=== PATIENT | male | born 1945 | race Caucasian/White ===

== ENCOUNTER 2017-02-20 19:46 | Inpatient (IN) ==
--- NOTE | 2017-02-20 20:22 | Emergency Department Note ---
General Adult HPI - General Chief complaint: Altered Mental Status Stated complaint: fall Time Seen by Provider: 02/20/17 19:59 Source: EMS Mode of arrival: wheelchair - History of Present Illness HPI Narrative: Patient lives at home by himself , age 72, states that he fell approximately 4 hours ago but was unable to get up to make a phone call. Daughters called EMs welfare check and they found him on the floor. he states that he is too heavy to get up on his own. He denies any chest pain or shortness of breath. He states he just stumbled to the floor. No loss consciousness there is no head injury. Currently patient has been refusing to go to a shelter as the family feels he is been unable to care for himself. Not be taking his medications correctly. He does have a history of bipolar disorder but I do not think he is on lithium at this time. Is diabetic but his blood sugars 94 when soa integration developer first arrived 88 at this time. he appears dehydrated. He is now 94 systolically fluids are currently being bolused. he is aware that he is a [facility] seems to be able to give us a good history on what exactly happened. He blames on his weight for not being able to get up., States that his lifeline device not working. - Related Data Home Medications Medication Instructions Recorded Confirmed ALPRAZolam [Xanax] 0.25 mg PO BIDP PRN 04/04/16 02/21/17 Bisoprolol [Zebeta] 5 mg PO DAILY 04/04/16 02/21/17 Carisoprodol [Soma] 350 mg PO BID 04/04/16 02/21/17 Citalopram Hydrobromide 20 mg PO DAILY 04/04/16 02/21/17 [Citalopram HBr] Furosemide [Lasix] 20 mg PO DAILY 04/04/16 02/21/17 Gabapentin [Neurontin] 600 mg PO TID 04/04/16 02/21/17 HYDROcodone/APAP 10/325MG [[place] 1 - 2 tab PO Q4H PRN 04/04/16 02/21/17 10/325Mg] Lisinopril [Zestril] 20 mg PO DAILY 04/04/16 02/21/17 [employer] Carbon[place] 300 mg PO TID 04/04/16 02/21/17 Simvastatin [Zocor] 20 mg PO HS 04/04/16 02/21/17 Tamsulosin [Flomax] 0.4 mg PO HS 04/04/16 02/21/17 metFORMIN HCL [Glucophage] 1,000 mg PO BID 04/04/16 02/21/17 lamoTRIgine [Lamotrigine] 200 mg PO HS 04/05/16 02/21/17 Allergies Allergy/AdvReac Type Severity Reaction Status Date / Time Iodinated Contrast Media - Allergy Severe Unresponsiv Verified 04/04/16 15:46 Oral and e [Iodinated Contrast Media - IV Dye] Methadone [METHADONE] Allergy Intermediate UNKNOWN Verified 04/04/16 11:59 quetiapine [From SEROQUEL] AdvReac Intermediate DELUSIONAL, Verified 04/04/16 13 :59 SICK risperidone [From RISPERDAL] AdvReac Intermediate DELUSIONAL, Verified 04/04/16 13:59 SICK Zolpidem [From AMBIEN] AdvReac Intermediate DELUSIONS Verified 04/04/16 13:59 Review of Systems All systems ED: reviewed and negative except as stated. Constitutional: Denies: fever Eyes: Denies: eye pain ENT ED: Denies: ear pain Cardiovascular: Denies: chest pain Respiratory: Denies: cough Gastrointestinal: Denies: abdominal pain Genitourinary: Denies: urgency Musculoskeletal: Denies: back pain Integumentary: Denies: rash Neurological: Reports: weakness. Denies: headache, numbness, paresthesias, confusion, abnormal gait, vertigo Psychiatric: Denies: anxiety Past Medical History - Past Medical History Medical history: Reports: diabetes, hyperlipidemia, hypertension, thyroid disease, other (cellulitis. BPH. Recurrent accidental falls. Sleep apnea. Morbid obesity.) Psychiatric history: Reports: bipolar, depression, PTSD - Social History smoking status: Current every day smoker Alcohol use: Reports: None Physical Exam - General Limitations: no limitations General appearance: lethargic - Head Head exam: atraumatic, normocephalic - Eye Eye exam: Present: normal appearance, PERRL - ENT ENT exam: normal exam, normal oropharynx, mucous membranes dry - Neck Neck exam: Present: normal inspection, full ROM - Chest Chest inspection: Present: normal inspection, symmetric chest wall rise - Respiratory Respiratory exam: Present: normal lung sounds bilaterally. Absent: respiratory distress, wheezes - Cardiovascular Cardiovascular exam: Present: regular rate, normal rhythm. Absent: bradycardia , tachycardia - Abdominal Exam Abdominal exam: Present: soft, distention. Absent: tenderness, guarding, rebound, rigidity - Extremities Exam Extremities exam: Present: normal inspection, full ROM. Absent: tenderness - Back Exam Back exam: Present: normal inspection, full ROM. Absent: tenderness - Expanded Neurological Exam Patient oriented to: Present: person, place. Absent: time Speech: Present: fluid speech Cranial nerves: EOM function (II, III, IV, ): Normal, facial sensation (V): Normal, facial palsy (VII): Normal, gag reflex (IX): Normal, spinal accessory function (XI): Normal, tongue deviation (XII): Normal Cerebellar function: normal gait Motor strength - LUE: 5/5 Motor strength - RUE: 5/5 Motor strength - LLE: 5/5 Motor strength - RLE: 5/5 Upper motor neuron exam: Babinski sign: Absent bilaterally Sensory exam upper extremity: Normal: light touch, pin prick Sensory exam lower extremity: Normal: light touch, pin prick - Psychiatric Psychiatric exam: Present: anxious - Skin Skin exam: Present: warm, dry Course Vital Signs Temperature 96.9 F L 02/20/17 19:48 Pulse Rate 55 L 02/20/17 19:48 Respiratory Rate 19 02/20/17 19:48 Blood Pressure 103/51 02/20/17 19:48 Pulse Oximetry (%) 95 02/20/17 19:48 Temperature 96.9 F L 02/20/17 19:48 Pulse Rate 55 L 02/21/17 07:48 Respiratory Rate 20 02/21/17 07:48 Blood Pressure 102/60 02/21/17 07:48 Pulse Oximetry (%) 98 02/21/17 07:48 Medical Decision Making - [facility] Narrative Medical decision making narrative: pt intially refused head ct then agreed. CT is negative bun is 20 the creatinine is 2.2 , wbc is 13.6 Patient refusing to be hospitalized states that he gets panic attacks when he is hospitalized. Attempted to contact the family were involved. Finally did contact the daughter. She states that the family refuses to have any interaction with him.. Due to the fact that the patient had fallen unable to get up we have observed the patient throughout the entire night patient is resting comfortably and still refusing to be admitted. Social service has been contacted patient is refusing assisted living options.. Radiologist would like to have a facial MRI this morning patient is refusing the facial MRI. Social service consulted. Patient transferred to the care of Dr. Orellana at 0900 hrs. - Lab Data Result diagrams: 02/20/17 20:19 02/20/17 20:19 Lab Results 02/20/17 02/20/17 02/20/17 Range/Units 20:19 20:19 20:19 WBC 13.6 H (4.5-11.0) K/mcL RBC 3.68 L (4.50-5.90) M/mcL Hgb 12.1 L (13.5-16.5) g/dL Hct 35.4 L (41.0-55.0) % POC Hct 34.0 L (41.0-55.0) % MCV 96.3 (80.0-100.0) fL MCH 32.9 (26.0-34.0) pg MCHC 34.2 (31.0-36.0) g/dL RDW 12.9 (11.5-14.5) % Plt Count 211 (140-440) K/mcL MPV 8.7 (7.4-10.4) fL Total Counted 100 Seg Neutrophils % 75 (38-78) % Band Neutrophils % Not Reportable Lymphocytes % 13 L (15-49) % Monocytes % (Manual) 7 (1-12) % Eosinophils % (Manual) 4 (0-7) % Basophils % (Manual) 1 (0-2) % Platelet Estimate Normal (NORMAL) RBC Morphology Normal (NORMAL) POC Sodium 141 (133-145) mmol/L Sodium 140 (133-145) mmol/L POC Potassium 3.5 (3.3-5.1) mmol/L Potassium 3.6 (3.3-5.1) mmol/L POC Chloride 109 H (96-108) mmol/L Chloride 105 (96-108) mmol/L Carbon Dioxide 18 L (22-30) mmol/L POC Total CO2 20 L (22-30) mmol/L Anion Gap 17.0 H (8-16) POC BUN 22 (8-23) mg/dl BUN 23 (8-23) mg/dl Creatinine 2.2 H (0.7-1.2) mg/dl POC Creatinine 2.3 H (0.7-1.2) mg/dl GFR Calculation 28 Glucose 83 (70-105) mg/dL POC Glucose 82 (70-105) mg/dL Calcium 9.0 (8.6-10.4) mg/dl POC WB Ioniz Calcium 1.18 (1.16-1.32) mmol/L Total Bilirubin 0.5 (0.0-1.0) mg/dL AST 22 (0-37) U/l ALT 16 (0-40) U/l Alkaline Phosphatase 48 (39-117) U/L Total Creatine Kinase 205 H (24-195) IU/L CK-MB (CK-2) 7.4 H (0-4.9) ng/ml Myoglobin 268 H (28-72) ng/ml Troponin T 0.02 (0-0.03) ng/ml Total Protein 5.9 (5.9-8.4) gm/dL Albumin 3.8 (3.2-5.2) gm/dL Globulin 2.1 L (2.2-3.7) gm/dL Albumin/Globulin Ratio 1.8 (1.0-2.3) Disposition Condition: Undetermined Referrals: Juliet Cortés MD [Primary Care Provider] - Forms: Left Against Medical Advice
[2017-02-20 21:06] LABS: Mean Cell Volume 96.3 fL (80.0-100.0); Mean Corpuscular HGB Conc 34.2 g/dL (31.0-36.0); Mean Corpuscular Hemoglobin 32.9 pg (26.0-34.0); Platelet Count 211 K/mcL (140-440); RBC 3.68 M/mcL (4.50-5.90); Red Cell Distribution Width 12.9 % (11.5-14.5)
[2017-02-20 21:42] LABS: ALT/SGPT 16 U/l (0-40); Albumin 3.8 gm/dL (3.2-5.2); Albumin/Globulin Ratio 1.8 (1.0-2.3); Alkaline Phosphatase 48 U/L (39-117); Blood Urea Nitrogen 23 mg/dl (8-23); Creatine Kinase 205 IU/L (24-195); Creatine Kinase MB 7.4 ng/ml (0-4.9); Myoglobin 268 ng/ml (28-72)
[2017-02-20 22:26] LABS: Basophils % (Manual) 1 % (0-2); Eosinophils % (Manual) 4 % (0-7); Lymphocytes % 13 % (15-49); Monocytes % (Manual) 7 % (1-12); Platelet Estimate NORMAL (NORMAL); RBC Morphology NORMAL (NORMAL); Segmented Neutrophils % 75 % (38-78)
--- NOTE | 2017-02-21 06:52 | XRay Report ---
CLINICAL INFORMATION: Weakness COMPARISON: 04/04/2016. FINDINGS: Mild cardiomegaly is unchanged. Mediastinum and pulmonary vessels are normal. The lungs are clear. No effusions. Bones soft tissues normal. IMPRESSION: Mild stable cardiomegaly. Interpreted and Authenticated by: Regulo Dupree 02/21/17
--- NOTE | 2017-02-21 07:02 | Cat Scan Report ---
CLINICAL INFORMATION: Trauma - fall COMPARISON: 04/25/[address] TECHNIQUE: 2.5 mm helical slices were obtained in the skull base to vertex. Following reconstruction, axial reformatted images were reviewed at bone and parenchymal windows. FINDINGS: The ventricles, sulci, fissures, and cisterns are minimally enlarged compatible with mild atrophy this is unchanged - no subdural hemorrhage or other extra-axial fluid collection or mass appreciated. Minimal chronic ischemic change noted the cerebral white matter. Is no intracerebral hemorrhage, mass effect, edema or other acute finding. Bone windows show no fracture. There is moderate mucosal thickening in right maxillary sinus with focal erosion in the posterior wall of the right maxillary sinus. Mild mucosal thickening in the ethmoid air cells may be physiologic. Sphenoid left maxillary and frontal air cells are clear IMPRESSION: Mild atrophy and chronic ischemic changes in the cerebral white matter - stable since exam less than one year ago. No intracerebral hemorrhage or acute posttraumatic change. Moderate mucosal thickening right maxillary sinus with focal erosion posterior wall the right maxillary sinus. This is a new finding when comparing head CT from less than one year prior 04/04/2016. The focal erosion is somewhat worrisome and increases the probability of squamous cell carcinoma. Suggest: Sinus CT Interpreted and Authenticated by: Regulo Dupree 02/21/17
--- NOTE | 2017-02-21 10:01 | History and Physical Report ---
DATE OF ADMISSION: 02/20/2017 REASON FOR ADMISSION: Mental status change, weakness, and fall, found down. HISTORY OF CHIEF COMPLAINT: The patient is a 72-year-old with a history of bipolar disorder, anum, diabetes, mellitus type 2 and neuropathy, who was found by his family on the floor. He was subsequently brought into the ER. The patient has a significant mental status change with initial GCS score of 11; however, over the ensuing 6 hours in the ER, the patient had extensive workup, which was essentially unremarkable except for renal failure with a creatinine of 2.3. The patient initially refused hospitalization. However, due to family's concerns and case management request patient finally agreed to hospitalization and subsequently Hospitalist Service was consulted. At the time of examination, the patient is lethargic, fatigued, intermittently confused but was able to provide answers to some of the questions. He lives independently. He has had recent medication changes as per patient by his primary care physician and has been progressively getting weaker. He has sustained multiple falls in the recent months. He otherwise denies fever, diarrhea, glandular swelling, joint swelling, pain or rash. He further denies lower extremity swelling, bloody stools, dysuria, chest pain, shortness of breath, cough, or sick contacts. He also denies recent [id number] medications or substance abuse. He has been on lithium in the past. A lithium level is pending. As per records, the patient did not lose consciousness. He is, however, too weak to be able to press his Life Alert. PAST MEDICAL HISTORY: 1. History of hypertension. 2. Anxiety. 3. Hyperlipidemia. 4. Neuropathy. 5. Diabetes mellitus type 2. 6. Degenerative joint disease. 7. Bipolar disorder. 8. BPH. CURRENT MEDICATIONS: 1. Alprazolam 0.25 mg b.i.d. p.r.n. 2. Bisoprolol 5 mg. 3. Risperdal 50 mg. 4. Citalopram 20 mg. 5. Furosemide 20 mg. 6. Gabapentin 600 mg t.i.d. 7. Hydrocodone/acetaminophen 10/325 mg 1 to 2 q.4h. 8. Lisinopril 20 mg. 9. [place] 300 mg t.i.d. 10. Simvastatin 20 mg at bedtime. 11. Tamsulosin 0.4 mg at bedtime. 12. Metformin 1000 mg b.i.d. 13. Lamotrigine 20 mg at bedtime. ALLERGIES: Known to: 1. ZOLPIDEM. 2. RISPERIDONE. 3. QUETIAPINE. 4. METHADONE. 5. CONTRAST DYES. SOCIAL HISTORY: The patient lives alone; however, he has local family in town including 19 grandkids. He has two daughters. CODE STATUS: FULL CODE. He sees primary care physician, Juliet Cortés MD. FAMILY HISTORY: Noncontributory. PHYSICAL EXAMINATION: GENERAL: The patient intermittently confused, weak, lethargic, fatigued. BMI 47. Height 5 feet 7 inches. VITAL SIGNS: Blood pressure 140/50, respiration rate 11, temperature 96.9, pulse 55, sats 96% on room air. HEENT: Pupils symmetric. Oral cavity is dry. No nystagmus. No ear or nose discharge. Head is normocephalic and atraumatic. NECK: No lymphadenopathy. HEART: S1, S2 regular rhythm, bradycardia. ESM grade 1. Diminished breath sounds at bases, but symmetrical breath sounds bilateral posterior chest. ABDOMEN: Soft, pendulous, extensive pannus, upper extremity skin excoriation along with bruising. LOWER EXTREMITIES: Minimal edema, but no cyanosis or clubbing. No joint swelling. SKIN: No suspicious lesions. PSYCHIATRIC: Anxious, hard of hearing, lethargic, but no agitation. NEURO: Moving all four extremities. Higher functions could not be checked. LABS AND IMAGING: White count 13.6, hemoglobin 12.1, platelets 211. Sodium 141, potassium 4.1, creatinine 2.3, and BUN 23. CK 205. LFTs unremarkable. [place] level pending. ASSESSMENT AND PLAN: A 72-year-old admitted with mental status change, falls, leukocytosis, acute renal failure. 1. Acute mental status change, unclear etiology. Rule out lithium toxicity, lithium levels pending. Rule out infectious etiology, perform lumbar puncture, start empiric antibiotic coverage. 2. Acute renal failure. Baseline creatinine 1.4. Start patient on crystalloids and monitor renal function and consult Nephrology if worsening leukocytosis of unclear etiology. [place] cultures, initiate antibiotics. Procalcitonin, strep pneumo antigen. 3. Other prior medical issues will be managed on home medications, including: a. History of hyperlipidemia. Continue statin. b. Benign prostatic hypertrophy. Continue tamsulosin. c. History of bipolar disorder. Hold lithium. d. Diabetes mellitus type 2. Continue prandial insulin/Sitagliptin. e. Anxiety disorder. Continue citalopram/alprazolam. f. Hypertension. Continue bisoprolol/lisinopril. PLAN FOR TODAY: 1. Admit as inpatient in light of renal failure, leukocytosis, mental status change. 2. Lumbar puncture. 3. [place] cultures, lithium levels. 4. Monitor renal function. Patient will require minimum of two-midnight stay in light of above diagnosis. AA:ellen Job ID: [id number] Doc ID: [id number] Abdi Olivares MD
[2017-02-21] MEDS ORDERED: DEXTROSE 50% 50 ML VIAL IV PRN (10:58)
[2017-02-21] MEDS ORDERED: VANCOMYCIN PER PHARMACY IV SCH (10:58)
[2017-02-21] MEDS ORDERED: 0.9 % SODIUM CHLORIDE 1,000 ML IV SCH ×2 (10:58→14:20)
[2017-02-21] MEDS ORDERED: ONDANSETRON 4 MG/2 ML VIAL IV PRN (10:58)
[2017-02-21] MEDS ORDERED: MAGNESIUM SULFATE 2 GM/50 ML BAG IV PRN (10:58)
[2017-02-21 11:20] LABS: C-Reactive Protein < 0.3 mg/dl (0.0-0.8)
[2017-02-21] MEDS: INSULIN LISPRO 1 UNIT/0.01 ML UNIT SQ SCH ×3 (11:40→22:44)
[2017-02-21] MEDS: 0.9 % SODIUM CHLORIDE 10 ML SYRINGE IV SCH ×2 (12:00→21:19)
--- NOTE | 2017-02-21 12:07 | Event Note ---
Pt Creat is 2.45, gfr 28, MRI with contrast not possible. Therefore cacelled Pt is confused aoox2, but does obey commands, no neck rigidity, no neck stiffness. Emmet is 1.7. Will await UA before proceeding with LP.
[2017-02-21] MEDS: cefTRIAXone 2 GM in DEXTROSE 5% IN WATER 50 ML IV SCH (12:24)
[2017-02-21] MEDS: ACETAMINOPHEN 325 MG TABLET PO PRN (12:40)
[2017-02-21 13:26] LABS: Appearance,Urine HAZY; Bacteria,Urine 0 /hpf (0); Bilirubin,Urine NEG (NEG); Color,Urine YELLOW; Glucose,Urine (UA) 50 mg/dL (NEG); Leukocyte Esterase,Urine NEG /uL (NEG); Mucus,Urine FEW /hpf (0); Nitrate,Urine NEG (NEG); Protein,Urine 100 mg/dL (NEG); Specific Gravity,Urine 1.015 (1.000-1.035); Urine Blood NEG mg/dL (<0.03); Urine Granular Cast 1 /lpf (0); Urine Hyaline Cast 11 /lpf (0-2); Urine RBC < 1 /hpf (0-1); Urine Squamous Epithelial Cell 0 /hpf (0-4); Urine WBC 4 /hpf (0-4); Urine WBC Cast 12 /lpf (0); Urobilinogen,Urine NEG (NEG)
[2017-02-21 13:30] LABS: Amphetamine Screen,Urine NONE DETECTED (NONDETECTED); Benzodiazepines Screen,Urine SUSPECT POSITIVE (NONDETECTED); Cocaine Screen,Urine NONE DETECTED (NONDETECTED); Opiate Screen,Urine NONE DETECTED (NONDETECTED); Oxycodone, Urine Screen NONE DETECTED (NONDETECTED)
[2017-02-21] MEDS: VANCOMYCIN 1,500 MG in 0.9 % SODIUM CHLORIDE 500 ML IV SCH (13:52)
[2017-02-21 15:15] LABS: Basophils # (Auto) 0 K/mcL (0.0-0.3); Basophils % (Auto) 0.3 % (0.0-2.0); Eosinophils # (Auto) 0.7 K/mcL (0.0-0.7); Eosinophils % (Auto) 5.3 % (0.0-7.0); Granulocytes % (Auto) 69.4 % (38.0-78.0); Mean Corpuscular HGB Conc 33.8 g/dL (31.0-36.0); Mean Corpuscular Hemoglobin 32.4 pg (26.0-34.0); Monocytes # (Auto) 1.1 K/mcL (0.1-0.9); Platelet Count 218 K/mcL (140-440); RBC 3.63 M/mcL (4.50-5.90); Red Cell Distribution Width 12.9 % (11.5-14.5)
[2017-02-21 15:37] LABS: ALT/SGPT 15 U/l (0-40); Albumin 3.7 gm/dL (3.2-5.2); Albumin/Globulin Ratio 1.9 (1.0-2.3); Alkaline Phosphatase 48 U/L (39-117); Blood Urea Nitrogen 31 mg/dl (8-23)
--- NOTE | 2017-02-21 17:59 | Nephrology Consult Note ---
History of Present Illness - Reason for Consult Patient information: Note initiated : 02/21/17 at 5:49 pm Service Date, if different from initiated Date: [] Patient: Paco Ramos 72 y/o M admitted on 02/21/17 for fall. Chief Complaint: [] Consult date: 02/21/17 acute renal failure Requesting physician: Elias Kerr - Chief Complaint 72 years old male with lithium toxicity - History of Present Illness 72 years male, who was reportedly brought to to hospital after a family member grew concerned about his mental status during a routine wellness check. Patient stated that he lives alone and that he had multiple episodes or diarrhea the day before he was admitted to hospital. He denied fever, chills, chest pain, dyspnea, nausea, vomiting, tremors or seizures. At present he is alert and oriented to self and place, without any tremors, myoclonus or seizures. Nursing staff report he was initially somnolent but has been more awake and at times agitated. Patient asked he can be prescribed Flonase nasal spray since he routinely uses it at home twice a day. He denied suicidal ideation or attempt and could not recall if he takes regular [place] or sustained release preparation. Notably, his out patient medications include Lasix and Lisinopril, and he stated that he has been taking all his pills "exactly as prescribed" Nursing staff reported that patient received about 2 liters of isotonic saline iv in ER, followed by about 650 ml as diluent for iv ceftriaxone and vancomycin (1.5 grams given iv), and that since arrival to floor he has only received about 850 ml of isotonic saline. Urine output was reported to be about 1 liter since 7 am today. Reportedly, patient refused [place], CT of sinuses and lumbar puncture Review of Systems ROS unobtainable: due to mental status Past History Past medical history: Bipolar disorder on [place] Past surgical history: Patient unable to recall Past family history: Patient unable to recall Past social history: Patient denied alcohol abuse or drug abuse, reported occasional tobacco use Medications and Allergies Home Medications Medication Instructions Recorded Confirmed Type ALPRAZolam [Xanax] 0.25 mg PO BIDP PRN 04/04/16 02/21/17 History Bisoprolol [Zebeta] 5 mg PO DAILY 04/04/16 02/21/17 History Carisoprodol [Soma] 350 mg PO BID 04/04/16 02/21/17 History Citalopram Hydrobromide 20 mg PO DAILY 04/04/16 02/21/17 History [Citalopram HBr] Furosemide [Lasix] 20 mg PO DAILY 04/04/16 02/21/17 History Gabapentin [Neurontin] 600 mg PO TID 04/04/16 02/21/17 History Lisinopril [Zestril] 20 mg PO DAILY 04/04/16 02/21/17 History [place] Carbonate 300 mg PO TID 04/04/16 02/21/17 History Simvastatin [Zocor] 20 mg PO HS 04/04/16 02/21/17 History Tamsulosin [Flomax] 0.4 mg PO HS 04/04/16 02/21/17 History metFORMIN HCL [Glucophage] 1,000 mg PO BID 04/04/16 02/21/17 History lamoTRIgine [Lamotrigine] 200 mg PO HS 04/05/16 02/21/17 History Finasteride [Proscar] 5 mg PO DAILY 02/21/17 02/21/17 History HYDROcodone/ACETAMINOPHEN 1 - 2 tab PO Q4HP PRN 02/21/17 02/21/17 History [Hydrocodon-Acetaminophn 10-325] Allergies Allergy/AdvReac Type Severity Reaction Status Date / Time Iodinated Contrast Media - Allergy Severe Unresponsiv Verified 04/04/16 15:46 Oral and e [Iodinated Contrast Media - IV Dye] Methadone [METHADONE] Allergy Intermediate UNKNOWN Verified 04/04/16 11:59 quetiapine [From SEROQUEL] AdvReac Intermediate DELUSIONAL, Verified 04/04/16 13 :59 SICK risperidone [From RISPERDAL] AdvReac Intermediate DELUSIONAL, Verified 04/04/16 13:59 SICK Zolpidem [From AMBIEN] AdvReac Intermediate DELUSIONS Verified 04/04/16 13:59 Exam - Vital Signs Vital signs: Temp Pulse Resp BP Pulse Ox 98.2 F 49 L 16 150/66 98 02/21/17 15:45 02/21/17 11:16 02/21/17 15:45 02/21/17 15:45 02/21/17 15:45 - General Appearance General appearance: appears started age, obese Results - Lab Results 02/21/17 14:40 02/21/17 14:40 Most recent lab results Calcium 9.0 mg/dl (8.6-10.4) 02/21/17 14:40 Assessment and Plan (1) LEATHA (acute kidney injury) Baseline renal function unknown, SCr currently stable, noted to have mildly elevated CK, could have underlying mild CKD due to chronic [place] use or other unknown etiology, clinically not grossly hypo or hypervolemic, would pursue iv hydration liberally (nursing staff instructed), follow I/O, BMP, follow serum vancomycin trough level, renal sonogram if not done already (unlikely to have obstructive uropathy) Mild decrease in serum bicarbonate and elevation in AG suggestive of AG metabolic acidosis which is not characteristic of [place] toxicity. Check serum salicylate, acetaminophen, lactate, beta-OH, urine and serum osmolality, venous blood gas No clinical evidence of sepsis, leukocytosis possible due to [place] toxicity, reasonable to continue empiric antibiotics with dose adjustments Status: Acute (2) [place] poisoning of undetermined intent Most likely, as suggested by history and symptoms, this is acute on chronic toxicity precipitated by diarrhea with on going use of Lasix and Lisinopril as opposed to acute intentional overdose. At present neurological status and [place] level and lack of adequate hydration there is no pressing indication for hemodialysis. Rise in [place] level possible due to delayed absorption or use of delayed release preparation. Symptoms, urine SG, serum sodium, serum calcium, not suggestive of [place]-induced Diabetes Insipidus. Nursing staff instructed to maintain iv isotonic saline infusion rate at 200- 250 ml per hr, follow I/O, periodic evaluation of volume status, would check TSH if not sent already and follow blood glucose to monitor for hypoglycemia, new lithium level result is pending, check [place] with am labs Status: Chronic
[2017-02-21] MEDS ORDERED: LORazepam 2 MG/ML VIAL ONE (18:34)
[2017-02-21] MEDS: LORazepam 2 MG/ML VIAL IV PRN ×2 (18:36→22:00)
[2017-02-21 19:29] LABS: ABG Methemoglobin 0.1 % (0.4-1.5); VBG Base Excess -3.8 (-2.0-2.0); VBG HCO3 20.8 mmol/L (24.0-28.0); VBG Oxygen Saturation 95.8 % (40.0-70.0); VBG PH 7.38 U (7.32-7.42); VBG PO2 124 mmHg (25-40); VBG Total CO2 21.9 mmol/L (25.0-29.0)
[2017-02-21 20:16] LABS: Beta Hydroxybutyrate 0.43 mmol/L (< 0.27)
[2017-02-21] MEDS: 0.9 % SODIUM CHLORIDE 1,000 ML IV SCH ×3 (20:28→21:19)
[2017-02-21] MEDS: SENNOSIDES/DOCUSATE SODIUM 1 TAB TABLET PO SCH (21:20)
[2017-02-21] MEDS: DOCUSATE SODIUM 100 MG CAPSULE PO SCH (21:20)
[2017-02-21] MEDS: HEPARIN 5,000 UNIT/ML VIAL SQ SCH (22:43)
[2017-02-21] MEDS: SIMVASTATIN 20 MG TABLET PO SCH (22:45)
[2017-02-21] MEDS: lamoTRIgine 100 MG TABLET PO SCH (22:45)
[2017-02-21] MEDS: GABAPENTIN 300 MG CAPSULE PO SCH (22:45)
[2017-02-21] MEDS: HYDROcodone/APAP 10/325MG TABLET PO PRN (22:45)
[2017-02-21] MEDS: TAMSULOSIN 0.4 MG CAPSULE PO SCH (22:46)
[2017-02-21] MEDS: CARISOPRODOL 350 MG TABLET PO SCH (22:46)
[2017-02-22] MEDS: HYDROcodone/APAP 10/325MG TABLET PO PRN (02:20)
[2017-02-22] MEDS: LORazepam 2 MG/ML VIAL IV PRN ×8 (02:59→23:26)
[2017-02-22] MEDS: 0.9 % SODIUM CHLORIDE 1,000 ML IV SCH ×4 (03:25→10:50)
[2017-02-22] MEDS: 0.9 % SODIUM CHLORIDE 10 ML SYRINGE IV SCH ×3 (05:24→21:34)
[2017-02-22 05:57] LABS: Mean Cell Volume 97.1 fL (80.0-100.0); Mean Corpuscular HGB Conc 34.1 g/dL (31.0-36.0); Mean Corpuscular Hemoglobin 33.2 pg (26.0-34.0); Platelet Count 205 K/mcL (140-440); RBC 3.65 M/mcL (4.50-5.90); Red Cell Distribution Width 12.9 % (11.5-14.5)
[2017-02-22 06:44] LABS: ALT/SGPT 15 U/l (0-40); Albumin 3.6 gm/dL (3.2-5.2); Albumin/Globulin Ratio 1.9 (1.0-2.3); Alkaline Phosphatase 48 U/L (39-117); Bilirubin,Direct < 0.2 mg/dL (0.0-0.3); Blood Urea Nitrogen 19 mg/dl (8-23); Gamma Glutamyl Transpeptidase 15 U/L (8-61); Magnesium 1.7 mg/dL (1.6-2.5); Uric Acid 9.1 mg/dL (2.5-8.0)
[2017-02-22 06:57] LABS: Eosinophils % (Manual) 7 % (0-7); Lymphocytes % 21 % (15-49); Monocytes % (Manual) 7 % (1-12); Platelet Estimate NORMAL (NORMAL); RBC Morphology NORMAL (NORMAL); Segmented Neutrophils % 65 % (38-78)
[2017-02-22 07:13] LABS: Acetaminophen < 5.0 mcg/ml (10.0-30.0); Salicylate 0.4 mg/dL (0-30.0)
[2017-02-22] MEDS: INSULIN LISPRO 1 UNIT/0.01 ML UNIT SQ SCH ×4 (07:19→21:23)
[2017-02-22] MEDS: PANTOPRAZOLE 40 MG TABLET PO SCH (07:19)
--- NOTE | 2017-02-22 08:16 | Nephrology Progress Note ---
Subjective Patient information: Note initiated : 02/22/17 at 8:14 am Service Date, if different from initiated Date: [] Patient: Paco Ramos 72 y/o M admitted on 02/21/17 for fall. Chief Complaint: [] Principal diagnosis: Acute Kidney Injury; [place] toxicity Interval history: Patient reported feeling well, no specific complaints. He is alert and awake but appears confused. 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 Pertinent ROS: Patient unable to provide ROS due to altered mental status Objective - Vital Signs Vital signs: Vital Signs Temp Pulse Pulse Resp BP BP Pulse Ox 02/22/17 03:56 97.8 F 47 L 16 141/68 98 02/22/17 00:00 98.0 F 50 L 19 154/66 96 02/21/17 20:00 97.8 F 48 L 14 121/61 96 02/21/17 15:45 98.2 F 16 150/66 98 02/21/17 12:10 132/62 132/62 02/21/17 12:00 97.2 F 16 132/62 02/21/17 11:16 49 L 113/54 96 02/21/17 11:15 16 113/54 96 02/21/17 11:02 115/54 02/21/17 11:00 117/76 115/54 02/21/17 10:58 97.6 F 16 117/76 94 Intake and Output 02/21/17 02/22/17 02/22/17 21:59 05:59 13:59 Intake Total 2455 / 2455 Output Total 625 / 625 1250 / 1250 Balance -625 / -625 1205 / 1205 Intake: IV 2455 / 2455 Sodium Chloride 0.9% 1, 1000 / 1000 000 ml @ 200 mls/hr IV . Q5H MUKUND Rx#:[id number] Vancomycin 1,500 mg In 500 / 500 Sodium Chloride 0.9% 500 ml @ 333.3 mls/hr IV Q24H MUKUND Rx#:[id number] Output: Void Amount 625 / 625 1250 / 1250 Other: Meal Lunch Percent of Meal Consumed 50% # Bowel Movements 1 Weight 294 lb 12.8 oz Intake & Output: Intake & Output 02/21/17 02/22/17 02/22/17 21:59 05:59 13:59 Intake Total 2455 / 2455 Output Total 625 / 625 1250 / 1250 Balance -625 / -625 1205 / 1205 Weight 294 lb 12.8 oz Intake: IV 2455 / 2455 Sodium Chloride 0.9% 1, 1000 / 1000 000 ml @ 200 mls/hr IV . Q5H MUKUND Rx#:[id number] Vancomycin 1,500 mg In 500 / 500 Sodium Chloride 0.9% 500 ml @ 333.3 mls/hr IV Q24H MUKUND Rx#:[id number] Output: Void Amount 625 / 625 1250 / 1250 Other: Meal Lunch Percent of Meal Consumed 50% # Bowel Movements 1 - Lab 02/22/17 04:12 02/22/17 04:12 Most recent lab results Calcium 8.9 mg/dl (8.6-10.4) 02/22/17 04:12 Phosphorus 2.5 mg/dL (2.7-4.5) L 02/22/17 04:12 Magnesium 1.7 mg/dL (1.6-2.5) 02/22/17 04:12 Assessment and Plan (1) LEATHA (acute kidney injury) Renal function improved with hydration. Change IVF to 0.45 saline at 150 ml per hr. AG metabolic acidosis improving, follow I/O, BMP Status: Acute (2) [place] poisoning of undetermined intent Improved with IV hydration. No worsening neurological symptoms. No indication for dialysis at present. Expect gradual improvement in mental status. Follow [place] level daily Status: Chronic
[2017-02-22] MEDS ORDERED: BISOPROLOL 5 MG TABLET PO SCH (09:00)
[2017-02-22] MEDS: CARISOPRODOL 350 MG TABLET PO SCH ×2 (09:26→21:30)
[2017-02-22] MEDS: cefTRIAXone 2 GM in DEXTROSE 5% IN WATER 50 ML IV SCH (09:26)
[2017-02-22] MEDS: THIAMINE 100 MG in 0.9 % SODIUM CHLORIDE 50 ML IV SCH (09:26)
[2017-02-22] MEDS: HEPARIN 5,000 UNIT/ML VIAL SQ SCH ×2 (09:26→21:57)
[2017-02-22] MEDS: DOCUSATE SODIUM 100 MG CAPSULE PO SCH ×2 (09:27→21:29)
[2017-02-22] MEDS: sitaGLIPtin 100 MG TABLET PO SCH (09:27)
[2017-02-22] MEDS: GABAPENTIN 300 MG CAPSULE PO SCH ×3 (09:27→21:30)
[2017-02-22] MEDS: MULTIVIT,THER IRON,CA,FA & MIN 1 TABLET PO SCH (09:27)
[2017-02-22] MEDS: FINASTERIDE 5 MG TABLET PO SCH (09:28)
[2017-02-22] MEDS: CITALOPRAM 20 MG TABLET PO SCH (09:29)
[2017-02-22] MEDS: 0.45 % SODIUM CHLORIDE 1,000 ML IV SCH ×2 (10:51→18:25)
--- NOTE | 2017-02-22 12:32 | Internal Med Progress Note ---
Medical - PN: Subj Patient information: Note initiated : 02/22/17 at 12:25 pm Service Date, if different from initiated Date: [] Patient: Paco Ramos 72 y/o M admitted on 02/21/17 for fall. Chief Complaint: [] Interval history: This is a 72 yr male admitted to the hospital with AMS, on eval not ed that patient had tremors, and depressed mentation, altered mentation, elevated lithium levels and renal failure. Patient was seen by nephrology, and IV fluids given, pt lithium levels improved. 02/22: patient seen examined, no acute overnight events, patient much more cooperative today, he was sitting comfortably eating breakfast. Labs reviwed with im. He is ok to get CT sinuses for eval for possible malignancy in the sinuses. Pertinent ROS: Denies headache, dizziness Denies chest pain, palpitations Denies cough or shortness of breath Denies abdominal pain, nausea or vomiting. - Constitutional Vitals: Vital Signs Temp Pulse Resp BP Pulse Ox 97.5 F 47 L 18 133/78 100 02/22/17 08:00 02/22/17 03:56 02/22/17 08:00 02/22/17 08:00 02/22/17 08:00 Period Temp Pulse Resp BP Sys/Ceron Pulse Ox Last 24 Hr 97.5 F-98.2 F 47-50 14-19 121-154/61-78 96-100 Intake and Output 02/21/17 02/22/17 02/22/17 21:59 05:59 13:59 Intake Total 2455 / 2455 1000 / 1000 Output Total 625 / 625 1250 / 1250 Balance -625 / -625 1205 / 1205 1000 / 1000 Weight 294 lb 12.8 oz Intake & Output: Intake & Output 02/21/17 02/22/17 02/22/17 21:59 05:59 13:59 Intake Total 2455 / 2455 1000 / 1000 Output Total 625 / 625 1250 / 1250 Balance -625 / -625 1205 / 1205 1000 / 1000 Weight 294 lb 12.8 oz Intake: IV 2455 / 2455 1000 / 1000 Sodium Chloride 0.9% 1, 1000 / 1000 1000 / 1000 000 ml @ 200 mls/hr IV . Q5H [facility] Rx#:[id number] Vancomycin 1,500 mg In 500 / 500 Sodium Chloride 0.9% 500 ml @ 333.3 mls/hr IV Q24H [facility] Rx#:[id number] Output: Void Amount 625 / 625 1250 / 1250 Other: Meal Lunch Percent of Meal Consumed 50% # Bowel Movements 1 Exam: Constitutional; Afebrile, cooperative, alert, not in distress, morbidly obese Eyes- No icterus, , No periorbital swelling Ears- Ext ear normal, hearing normal to conversation. Neck- Midline trachea, supple Respiratory system: Air Entry equal on both sides, No crackles or wheezing, no rhonchi. CVS- Rate rhythm regular, S1,S2 heard, no gallop, no rub. 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 Medical - PN: Obj Da - Labs CBC & Chem 7: 02/22/17 04:12 02/22/17 04:12 Labs: Abnormal Lab Results 02/22/17 02/22/17 02/22/17 04:12 04:12 04:12 WBC RBC Hgb Hct Gran # [place] # (Auto) ABG Methemoglobin VBG pCO2 VBG pO2 VBG HCO3 VBG Total CO2 VBG O2 Saturation VBG Base Excess Carboxyhemoglobin Total Hemoglobin Carbon Dioxide 21 L BUN Creatinine Glucose 128 H Uric Acid 9.1 H Phosphorus 2.5 L Total Protein 5.5 L Globulin 1.9 L Triglycerides 173 H Beta-Hydroxybutyrate Urine Protein Urine Glucose (UA) Hyaline Casts Granular Casts WBC Casts Acetaminophen < 5.0 L U Benzodiazepines Scrn [place] 1.4 H 02/22/17 02/21/17 02/21/17 04:12 18:57 14:40 WBC 11.2 H RBC 3.65 L Hgb 12.1 L Hct 35.5 L Gran # [place] # (Auto) ABG Methemoglobin 0.1 L VBG pCO2 36.0 L VBG pO2 124 H VBG HCO3 20.8 L VBG Total CO2 21.9 L VBG O2 Saturation 95.8 H VBG Base Excess -3.8 L Carboxyhemoglobin 2.8 H Total Hemoglobin 11.8 L Carbon Dioxide BUN Creatinine Glucose Uric Acid Phosphorus Total Protein Globulin Triglycerides Beta-Hydroxybutyrate 0.43 H Urine Protein Urine Glucose (UA) Hyaline Casts Granular Casts WBC Casts Acetaminophen U Benzodiazepines Scrn [place] 02/21/17 02/21/17 02/21/17 14:40 14:40 14:40 WBC 12.5 H RBC 3.63 L Hgb 11.8 L Hct 34.8 L Gran # 8.7 H [place] # (Auto) 1.1 H ABG Methemoglobin VBG pCO2 VBG pO2 VBG HCO3 VBG Total CO2 VBG O2 Saturation VBG Base Excess Carboxyhemoglobin Total Hemoglobin Carbon Dioxide 20 L BUN 31 H Creatinine 2.1 H Glucose 163 H Uric Acid Phosphorus Total Protein 5.7 L Globulin 2.0 L Triglycerides Beta-Hydroxybutyrate Urine Protein Urine Glucose (UA) Hyaline Casts Granular Casts WBC Casts Acetaminophen U Benzodiazepines Scrn [place] 2.5 H* 02/21/17 02/21/17 12:16 12:16 WBC RBC Hgb Hct Gran # [place] # (Auto) ABG Methemoglobin VBG pCO2 VBG pO2 VBG HCO3 VBG Total CO2 VBG O2 Saturation VBG Base Excess Carboxyhemoglobin Total Hemoglobin Carbon Dioxide BUN Creatinine Glucose Uric Acid Phosphorus Total Protein Globulin Triglycerides Beta-Hydroxybutyrate Urine Protein 100 A Urine Glucose (UA) 50 A Hyaline Casts 11 H Granular Casts 1 H WBC Casts 12 H Acetaminophen U Benzodiazepines Scrn Suspect positive A [place] Meds: Medications Acetaminophen (Tylenol) 650 mg PO Q4-6HP PRN PRN Reason: PAIN/FEVER > 101 Last Admin: 02/21/17 12:40 Dose: 650 mg Hydrocodone Bitart/Acetaminophen ([place] 10/325mg) 1 tab PO Q4-6HP PRN PRN Reason: Pain Last Admin: 02/22/17 02:20 Dose: 1 tab Bisoprolol Fumarate (Zebeta) 5 mg PO DAILY [facility] Last Admin: 02/22/17 09:29 Dose: 5 mg Carisoprodol (Soma) 350 mg PO BID [facility] Last Admin: 02/22/17 09:26 Dose: 350 mg Citalopram Hydrobromide (Celexa) 20 mg PO DAILY [facility] Last Admin: 02/22/17 09:29 Dose: 20 mg Dextrose (Dextrose 50%) 0 ml IV UD PRN PRN Reason: Hypoglycemia Diagnostic Test (Pha) (Accu-Chek) 1 each FS ACHS [facility] Last Admin: 02/22/17 07:18 Dose: 1 each Docusate Sodium (Colace) 100 mg PO BID [facility] Last Admin: 02/22/17 09:27 Dose: 100 mg Finasteride (Proscar) 5 mg PO DAILY [facility] Last Admin: 02/22/17 09:28 Dose: 5 mg Gabapentin (Neurontin) 600 mg PO TID [facility] Last Admin: 02/22/17 09:27 Dose: 600 mg Heparin Sodium (Porcine) (Heparin) 5,000 unit SQ Q12 [facility] Last Admin: 02/22/17 09:26 Dose: 5,000 unit Ceftriaxone Sodium 2 gm/ (Dextrose) 50 mls @ 100 mls/hr IV Q24H [facility] Last Admin: 02/22/17 09:26 Dose: 100 mls/hr Magnesium Sulfate (Magnesium Sulfate) 2 gm in 50 mls @ 50 mls/hr IV UD PRN PRN Reason: MG = or < 1.7 Sodium Chloride (Sodium Chloride 0.9%) 1,000 mls @ 20 mls/hr IV .Q24H [facility] Last Admin: 02/22/17 10:50 Dose: Not Given Thiamine HCl 100 mg/ Sodium (Chloride) 51 mls @ 50 mls/hr IV DAILY [facility] Stop: 02/24/17 10:02 Last Admin: 02/22/17 09:26 Dose: 50 mls/hr Vancomycin HCl 1,500 mg/ (Sodium Chloride) 500 mls @ 333.3 mls/hr IV Q24H [facility] Last Infusion: 02/21/17 22:56 Dose: Infused Sodium Chloride (Sodium Chloride 0.45%) 1,000 mls @ 150 mls/hr IV .Q6H40M [facility] Stop: 02/22/17 21:45 Last Admin: 02/22/17 10:51 Dose: 150 mls/hr Insulin Human Lispro (Humalog) 0 unit SQ ACHS [facility] PRN Reason: Protocol Last Admin: 02/22/17 07:19 Dose: Not Given Iron Carb/Multivit/Shoemaker Custom/Folic Acid (Multivitamin W/Minerals) 1 tab PO DAILY [facility] Last Admin: 02/22/17 09:27 Dose: 1 tab Lamotrigine (Lamictal) 200 mg PO HS [facility] Last Admin: 02/21/17 22:45 Dose: 200 mg Lorazepam (Ativan) 1 - 2 mg IV Q4-6HP PRN PRN Reason: ANXIETY/SEDATION Last Admin: 02/22/17 11:38 Dose: 1 mg Ondansetron HCl (Zofran) 4 mg IV Q4-6HP PRN PRN Reason: Nausea And Vomiting Pantoprazole Sodium (Protonix) 40 mg PO QAMAC [facility] Last Admin: 02/22/17 07:19 Dose: 40 mg Senna/Docusate Sodium (Senna Plus Tablet) 1 tab PO [facility] Last Admin: 02/21/17 21:20 Dose: Not Given Simvastatin (Zocor) 20 mg PO [facility] Last Admin: 02/21/17 22:45 Dose: 20 mg Sitagliptin Phosphate (Januvia) 50 mg PO DAILY [facility] Last Admin: 02/22/17 09:27 Dose: 50 mg Sodium Chloride (Saline Flush) 10 ml IV Q8 [facility] Last Admin: 02/22/17 05:24 Dose: 10 ml Tamsulosin HCl (Flomax) 0.4 mg PO [facility] Last Admin: 02/21/17 22:46 Dose: 0.4 mg Vancomycin HCl (Vancomycin Per Pharmacy) 1 order IV UD [facility] - ABG Interpretation ABG results: 02/21/17 18:57 ABG Methemoglobin 0.1 L VBG pH 7.38 VBG pCO2 36.0 L VBG pO2 124 H VBG HCO3 20.8 L VBG Total CO2 21.9 L VBG O2 Saturation 95.8 H VBG Base Excess -3.8 L Medical - PN: A/P - Time Spent With Patient Total time spent is greater than 50% in coordination of care (as documented) at patient's floor/unit and/or counseling patient: - Narrative A/P Narrative: A/P [place] Overdose, unintentional: [place] levels back down again, still high at 1.4, continue IV fluids, appreciate nephrology input. LEATHA on CKD: IV fluids , appreciate nephrology input, renal function nearly back to baseline. Bipolar disorder: Hold lithium for now, will resume at lower dose at discharge, he will need close follow up to monitor lithium levels. AMS: Mental status much improved. SOme of his mental status is confounded by his bipolar issues. No need for LP Chr pain: on gabapentin, hydrocodone, soma at home will resume same. DM: On sliding scale, glucose at goal. Maxillary sinusitis/ possible ca: CT face done, await reading. Pt may need outpatient ENT eval. Morbid obesity. DVT hep sq Diet Diabetic Full code Dispo: d/c likely sto SNF Medical - PN: Qual - Stroke Symptom Onset Unknown: No - VTE Deep Vein Thrombosis/Pulmonary Embolism Present on Admission: No
[2017-02-22] MEDS: VANCOMYCIN 1,500 MG in 0.9 % SODIUM CHLORIDE 500 ML IV SCH (13:04)
[2017-02-22] MEDS ORDERED: LORazepam 2 MG/ML VIAL IV ONE (13:22)
--- NOTE | 2017-02-22 18:27 | Cat Scan Report ---
CLINICAL INFORMATION: Focal erosion of the posterior wall the maxillary sinuses only seen on recent head CT - 02/20/2017. COMPARISON: None. TECHNIQUE: 2.5 millimeter axial slices were obtained through the facial region. Following reconstruction, 2.5 millimeter sagittal and axial reformations were obtained and reviewed in bone and soft tissue windows. FINDINGS: There is moderate nodular mucosal thickening in the right maxillary sinus with a 15 mm erosion confirmed in the posterior wall. Interestingly, soft tissue does not appear to extend beyond the erosion which would be unusual for malignant destruction. It is more likely inflammatory. There is minimal mucosal thickening left maxillary sinus. The spinal and sphenoid air cells are clear. Mild mucosal thickening seen throughout the ethmoid air cells. Moderate mucosal thickening present in the nasal septum and turbinates compatible with rhinitis. The region of the orbits TMJs and petrous temporal regions are normal. IMPRESSION: 1. No definite evidence of right maxillary sinus malignancy. There is moderate mucosal thickening scattered throughout the maxillary sinus - more prominent posterior wall where there is also a 15 mm focal erosion. No soft tissue extension beyond the erosion. Most likely result of inflammation. Suggest ENT referral. 2. Mild bilateral ethmoid and left maxillary sinusitis Interpreted and Authenticated by: Regulo Dupree 02/22/17
[2017-02-22] MEDS ORDERED: NON FORMULARY MEDICATION 1 DOSE MISCELL IM STA (20:12)
[2017-02-22 21:30] LABS: Basophils # (Auto) 0 K/mcL (0.0-0.3); Basophils % (Auto) 0.3 % (0.0-2.0); Eosinophils # (Auto) 0.6 K/mcL (0.0-0.7); Eosinophils % (Auto) 4.9 % (0.0-7.0); Lymphocytes # (Auto) 1.4 K/mcL (1.5-4.8); Lymphocytes % (Auto) 11.3 % (15.5-49.0); Mean Corpuscular HGB Conc 33.8 g/dL (31.0-36.0); Mean Corpuscular Hemoglobin 32.5 pg (26.0-34.0); Monocytes # (Auto) 0.8 K/mcL (0.1-0.9); Monocytes % (Auto) 6.5 % (1.0-12.0); Platelet Count 216 K/mcL (140-440); RBC 3.66 M/mcL (4.50-5.90); Red Cell Distribution Width 12.8 % (11.5-14.5)
[2017-02-22] MEDS: SENNOSIDES/DOCUSATE SODIUM 1 TAB TABLET PO SCH (21:30)
[2017-02-22] MEDS: TAMSULOSIN 0.4 MG CAPSULE PO SCH (21:30)
[2017-02-22] MEDS: SIMVASTATIN 20 MG TABLET PO SCH (21:30)
[2017-02-22] MEDS: lamoTRIgine 100 MG TABLET PO SCH (21:30)
[2017-02-22 21:42] LABS: ALT/SGPT 15 U/l (0-40); Albumin 3.6 gm/dL (3.2-5.2); Albumin/Globulin Ratio 2.3 (1.0-2.3); Alkaline Phosphatase 52 U/L (39-117); Bilirubin,Direct < 0.2 mg/dL (0.0-0.3); Blood Urea Nitrogen 12 mg/dl (8-23); Gamma Glutamyl Transpeptidase 14 U/L (8-61); Magnesium 1.4 mg/dL (1.6-2.5); Uric Acid 8.4 mg/dL (2.5-8.0)
[2017-02-22] MEDS ORDERED: MAGNESIUM SULFATE 2 GM/50 ML BAG IV ONE (21:45)
[2017-02-22] MEDS: HALOPERIDOL LACTATE 5 MG/ML VIAL IV PRN (22:10)
[2017-02-23] MEDS: HALOPERIDOL LACTATE 5 MG/ML VIAL IV PRN ×2 (02:03→05:47)
[2017-02-23] MEDS: LORazepam 2 MG/ML VIAL IV PRN (03:22)
[2017-02-23] MEDS: 0.9 % SODIUM CHLORIDE 10 ML SYRINGE IV SCH ×3 (05:26→22:20)
[2017-02-23 06:18] LABS: Mean Corpuscular HGB Conc 33.7 g/dL (31.0-36.0); Mean Corpuscular Hemoglobin 32.7 pg (26.0-34.0); Platelet Count 221 K/mcL (140-440); RBC 3.74 M/mcL (4.50-5.90); Red Cell Distribution Width 12.7 % (11.5-14.5)
[2017-02-23 06:40] LABS: ALT/SGPT 14 U/l (0-40); Albumin 3.6 gm/dL (3.2-5.2); Albumin/Globulin Ratio 1.7 (1.0-2.3); Alkaline Phosphatase 54 U/L (39-117); Bilirubin,Direct < 0.2 mg/dL (0.0-0.3); Blood Urea Nitrogen 9 mg/dl (8-23); Gamma Glutamyl Transpeptidase 16 U/L (8-61); Magnesium 1.7 mg/dL (1.6-2.5); Uric Acid 8.5 mg/dL (2.5-8.0)
[2017-02-23 07:47] LABS: Band Neutrophils % 1 % (0-10); Eosinophils % (Manual) 2 % (0-7); Lymphocytes % 9 % (15-49); Monocytes % (Manual) 5 % (1-12); Platelet Estimate NORMAL (NORMAL); RBC Morphology NORMAL (NORMAL); Segmented Neutrophils % 83 % (38-78)
[2017-02-23] MEDS: INSULIN LISPRO 1 UNIT/0.01 ML UNIT SQ SCH ×4 (08:10→22:22)
[2017-02-23] MEDS: HEPARIN 5,000 UNIT/ML VIAL SQ SCH ×2 (08:11→22:21)
[2017-02-23] MEDS: CITALOPRAM 20 MG TABLET PO SCH ×2 (08:11→12:47)
[2017-02-23] MEDS: PANTOPRAZOLE 40 MG TABLET PO SCH ×2 (08:11→12:46)
[2017-02-23] MEDS: MULTIVIT,THER IRON,CA,FA & MIN 1 TABLET PO SCH ×2 (08:11→12:48)
[2017-02-23] MEDS: GABAPENTIN 300 MG CAPSULE PO SCH ×4 (08:11→22:21)
[2017-02-23] MEDS: DOCUSATE SODIUM 100 MG CAPSULE PO SCH ×2 (08:12→22:22)
--- NOTE | 2017-02-23 08:12 | Internal Med Progress Note ---
Medical - PN: Subj Patient information: Note initiated : 02/23/17 at 8:03 am Service Date, if different from initiated Date: [] Patient: Paco Ramos 72 y/o M admitted on 02/21/17 for fall. Chief Complaint: [] Interval history: This is a 72 yr male admitted to the hospital with AMS, on eval not ed that patient had tremors, and depressed mentation, altered mentation, elevated lithium levels and renal failure. Patient was seen by nephrology, and IV fluids given, pt lithium levels improved. 02/22: patient seen examined, no acute overnight events, patient much more cooperative today, he was sitting comfortably eating breakfast. Labs reviewed with im. He is ok to get CT sinuses for eval for possible malignancy in the sinuses. 02/23: Pt seen examined, was sedated this AM, was very aggressive yesterday afternoon and overnight, needing 4 point restrains to maintain stability of lines and safety of nursing staff. Patient needed haldol and ativan to keep him calm. His wbc count is uptrending despite b eing on vanco and rocephin, his esr , crp is normal, prolactin is neg, ua neg and cxr clear. cultures have been neg so far he did manage to get CT sinus which is neg, he will need outpatient ENT referral Pertinent ROS: unable. - Constitutional Vitals: Vital Signs Temp Pulse Resp BP Pulse Ox 98.5 F 60 24 H 162/71 100 02/23/17 03:51 02/23/17 03:51 02/23/17 03:51 02/23/17 03:51 02/23/17 03:51 Period Temp Pulse Resp BP Sys/Ceron Pulse Ox Last 24 Hr 97.6 F-98.5 F 55-60 18-24 122-173/67-77 96-100 Intake and Output 02/22/17 02/23/17 02/23/17 21:59 05:59 13:59 Intake Total 1601 / 1601 Output Total 4 / 4 Balance 1597 / 1597 Weight 291 lb 3.2 oz Intake & Output: Intake & Output 02/22/17 02/23/17 02/23/17 21:59 05:59 13:59 Intake Total 1601 / 1601 Output Total 4 / 4 Balance 1597 / 1597 Weight 291 lb 3.2 oz Intake: IV 1601 / 1601 Sodium Chloride 0.45% 1, 1000 / 1000 000 ml @ 150 mls/hr IV . Q6H40M COUNTS INCLUDE 234 BEDS AT [facility] Rx#:[id number] Vitamin B1 100 mg In 51 / 51 Sodium Chloride 0.9% 50 ml @ 50 mls/hr IV DAILY COUNTS INCLUDE 234 BEDS AT [facility] Rx#:[id number] Vancomycin 1,500 mg In 500 / 500 Sodium Chloride 0.9% 500 ml @ 333.3 mls/hr IV Q24H [facility] Rx#:[id number] Rocephin 2 gm In Dextrose 50 / 50 5% in Water 50 ml @ 100 mls/hr IV Q24H COUNTS INCLUDE 234 BEDS AT THE [facility] Rx#: [id number] Output: # of times incontinent of 4 / 4 urine Exam: Constitutional; Afebrile, drowsy, morbidly obese, in 4 point soft restrains Eyes- No icterus, , No periorbital swelling Ears- Ext ear normal, hearing normal to conversation. Neck- Midline trachea, supple Respiratory system: Air Entry equal on both sides, No crackles or wheezing, no rhonchi. CVS- Rate rhythm regular, S1,S2 heard, no gallop, no rub. 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 Medical - PN: Obj Da - Labs CBC & Chem 7: 02/23/17 03:40 02/23/17 03:40 Labs: Abnormal Lab Results 02/23/17 02/23/17 02/22/17 03:40 03:40 20:58 WBC 13.8 H RBC 3.74 L Hgb 12.2 L Hct 36.3 L Lymph % (Auto) Gran # Lymph # (Auto) [place] # (Auto) Seg Neutrophils % 83 H Lymphocytes % 9 L ABG Methemoglobin VBG pCO2 VBG pO2 VBG HCO3 VBG Total CO2 VBG O2 Saturation VBG Base Excess Carboxyhemoglobin Total Hemoglobin Carbon Dioxide 21 L BUN Creatinine Glucose 129 H 152 H Uric Acid 8.5 H 8.4 H Phosphorus 2.1 L 2.3 L Magnesium 1.4 L Total Protein 5.7 L 5.2 L Globulin 2.1 L 1.6 L Triglycerides 186 H 181 H Beta-Hydroxybutyrate Urine Protein Urine Glucose (UA) Hyaline Casts Granular Casts WBC Casts Acetaminophen U Benzodiazepines Scrn [place] 02/22/17 02/22/17 02/22/17 20:58 04:12 04:12 WBC 12.1 H RBC 3.66 L Hgb 11.9 L Hct 35.2 L Lymph % (Auto) 11.3 L Gran # 9.3 H Lymph # (Auto) 1.4 L [place] # (Auto) Seg Neutrophils % Lymphocytes % ABG Methemoglobin VBG pCO2 VBG pO2 VBG HCO3 VBG Total CO2 VBG O2 Saturation VBG Base Excess Carboxyhemoglobin Total Hemoglobin Carbon Dioxide BUN Creatinine Glucose Uric Acid Phosphorus Magnesium Total Protein Globulin Triglycerides Beta-Hydroxybutyrate Urine Protein Urine Glucose (UA) Hyaline Casts Granular Casts WBC Casts Acetaminophen < 5.0 L U Benzodiazepines Scrn [place] 1.4 H 02/22/17 02/22/17 02/21/17 04:12 04:12 18:57 WBC 11.2 H RBC 3.65 L Hgb 12.1 L Hct 35.5 L Lymph % (Auto) Gran # Lymph # (Auto) [place] # (Auto) Seg Neutrophils % Lymphocytes % ABG Methemoglobin 0.1 L VBG pCO2 36.0 L VBG pO2 124 H VBG HCO3 20.8 L VBG Total CO2 21.9 L VBG O2 Saturation 95.8 H VBG Base Excess -3.8 L Carboxyhemoglobin 2.8 H Total Hemoglobin 11.8 L Carbon Dioxide 21 L BUN Creatinine Glucose 128 H Uric Acid 9.1 H Phosphorus 2.5 L Magnesium Total Protein 5.5 L Globulin 1.9 L Triglycerides 173 H Beta-Hydroxybutyrate Urine Protein Urine Glucose (UA) Hyaline Casts Granular Casts WBC Casts Acetaminophen U Benzodiazepines Scrn [place] 02/21/17 02/21/17 02/21/17 14:40 14:40 14:40 WBC RBC Hgb Hct Lymph % (Auto) Gran # Lymph # (Auto) [place] # (Auto) Seg Neutrophils % Lymphocytes % ABG Methemoglobin VBG pCO2 VBG pO2 VBG HCO3 VBG Total CO2 VBG O2 Saturation VBG Base Excess Carboxyhemoglobin Total Hemoglobin Carbon Dioxide 20 L BUN 31 H Creatinine 2.1 H Glucose 163 H Uric Acid Phosphorus Magnesium Total Protein 5.7 L Globulin 2.0 L Triglycerides Beta-Hydroxybutyrate 0.43 H Urine Protein Urine Glucose (UA) Hyaline Casts Granular Casts WBC Casts Acetaminophen U Benzodiazepines Scrn [place] 2.5 H* 06/20/17 06/20/17 06/20/17 14:40 12:16 12:16 WBC 12.5 H RBC 3.63 L Hgb 11.8 L Hct 34.8 L Lymph % (Auto) Gran # 8.7 H Lymph # (Auto) [place] # (Auto) 1.1 H Seg Neutrophils % Lymphocytes % ABG Methemoglobin VBG pCO2 VBG pO2 VBG HCO3 VBG Total CO2 VBG O2 Saturation VBG Base Excess Carboxyhemoglobin Total Hemoglobin Carbon Dioxide BUN Creatinine Glucose Uric Acid Phosphorus Magnesium Total Protein Globulin Triglycerides Beta-Hydroxybutyrate Urine Protein 100 A Urine Glucose (UA) 50 A Hyaline Casts 11 H Granular Casts 1 H WBC Casts 12 H Acetaminophen U Benzodiazepines Scrn Suspect positive A [place] Meds: Medications Acetaminophen (Tylenol) 650 mg PO Q4-6HP PRN PRN Reason: PAIN/FEVER > 101 Last Admin: 02/21/17 12:40 Dose: 650 mg Hydrocodone Bitart/Acetaminophen ([place] 10/325mg) 1 tab PO Q4-6HP PRN PRN Reason: Pain Last Admin: 02/22/17 02:20 Dose: 1 tab Carisoprodol (Soma) 350 mg PO BID [facility] 234 BEDS AT [facility] Last Admin: 02/22/17 21:30 Dose: Not Given Citalopram Hydrobromide (Celexa) 20 mg PO DAILY [facility]S [facility] 234 BEDS AT [facility] Last Admin: 02/22/17 09:29 Dose: 20 mg Dextrose (Dextrose 50%) 0 ml IV UD PRN PRN Reason: Hypoglycemia Diagnostic Test (Pha) (Accu-Chek) 1 each FS ACHS [facility]S [facility]CLUDE 234 BEDS AT [facility] Last Admin: 02/22/17 21:22 Dose: 1 each Docusate Sodium (Colace) 100 mg PO BID [facility]S [facility]CLUDE 234 BEDS AT [facility] Last Admin: 02/22/17 21:29 Dose: Not Given Finasteride (Proscar) 5 mg PO DAILY [facility]S [facility]CLUDE 234 BEDS AT [facility] Last Admin: 02/22/17 09:28 Dose: 5 mg Gabapentin (Neurontin) 600 mg PO TID [facility]S [facility] 234 BEDS AT [facility] Last Admin: 02/22/17 21:30 Dose: Not Given Haloperidol Lactate (Haldol) 2 mg IV Q4HP PRN PRN Reason: ANXIETY/SEDATION Last Admin: 02/23/17 05:47 Dose: 2 mg Heparin Sodium (Porcine) (Heparin) 5,000 unit SQ Q12 [facility]S [facility]CLUDE 234 BEDS AT [facility] Last Admin: 02/22/17 21:57 Dose: 5,000 unit Ceftriaxone Sodium 2 gm/ (Dextrose) 50 mls @ 100 mls/hr IV Q24H COUNTS INCLUDE 234 BEDS AT [facility] Last Infusion: 02/22/17 22:21 Dose: Infused Magnesium Sulfate (Magnesium Sulfate) 2 gm in 50 mls @ 50 mls/hr IV UD PRN PRN Reason: MG = or < 1.7 Sodium Chloride (Sodium Chloride 0.9%) 1,000 mls @ 20 mls/hr IV .Q24H COUNTS INCLUDE 234 BEDS AT [facility] Last Admin: 02/22/17 10:50 Dose: Not Given Thiamine HCl 100 mg/ Sodium (Chloride) 51 mls @ 50 mls/hr IV DAILY [facility]S [facility]CLUDE 234 BEDS AT [facility] Stop: 02/24/17 10:02 Last Infusion: 02/22/17 22:21 Dose: Infused Vancomycin HCl 1,500 mg/ (Sodium Chloride) 500 mls @ 333.3 mls/hr IV Q24H COUNTS INCLUDE 234 BEDS AT [facility] Last Infusion: 02/22/17 22:20 Dose: Infused Insulin Human Lispro (Humalog) 0 unit SQ ACHS [facility]S [facility]CLUDE 234 BEDS AT [facility] PRN Reason: Protocol Last Admin: 02/22/17 21:23 Dose: Not Given Iron Carb/Multivit/Labourers/Folic Acid (Multivitamin W/Minerals) 1 tab PO DAILY [facility]CLUDE 234 BEDS AT [facility] Last Admin: 02/22/17 09:27 Dose: 1 tab Lamotrigine (Lamictal) 200 mg PO HS [facility]S INCLUDE 234 BEDS AT [facility] Last Admin: 02/22/17 21:30 Dose: Not Given Lorazepam (Ativan) 1 - 2 mg IV Q4-6HP PRN PRN Reason: ANXIETY/SEDATION Last Admin: 02/23/17 03:22 Dose: 2 mg Ondansetron HCl (Zofran) 4 mg IV Q4-6HP PRN PRN Reason: Nausea And Vomiting Pantoprazole Sodium (Protonix) 40 mg PO QAMAC COUNTS INCLUDE 234 BEDS AT [facility] Last Admin: 02/22/17 07:19 Dose: 40 mg Senna/Docusate Sodium (Senna Plus Tablet) 1 tab PO HS [facility]S INCLUDE 234 BEDS AT [facility] Last Admin: 02/22/17 21:30 Dose: Not Given Simvastatin (Zocor) 20 mg PO HS COUNTS INCLUDE 234 BEDS AT [facility] Last Admin: 02/22/17 21:30 Dose: Not Given Sitagliptin Phosphate (Januvia) 50 mg PO DAILY [facility]S INCLUDE 234 BEDS AT [facility] Last Admin: 02/22/17 09:27 Dose: 50 mg Sodium Chloride (Saline Flush) 10 ml IV Q8 COUNTS INCLUDE 234 BEDS AT [facility] Last Admin: 02/23/17 05:26 Dose: 10 ml Tamsulosin HCl (Flomax) 0.4 mg PO HS COUNTS INCLUDE 234 BEDS AT [facility] Last Admin: 02/22/17 21:30 Dose: Not Given Vancomycin HCl (Vancomycin Per Pharmacy) 1 order IV UD [facility] - ABG Interpretation ABG results: 02/21/17 18:57 ABG Methemoglobin 0.1 L VBG pH 7.38 VBG pCO2 36.0 L VBG pO2 124 H VBG HCO3 20.8 L VBG Total CO2 21.9 L VBG O2 Saturation 95.8 H VBG Base Excess -3.8 L Medical - PN: A/P - Time Spent With Patient Total time spent is greater than 50% in coordination of care (as documented) at patient's floor/unit and/or counseling patient: - Narrative A/P Narrative: A/P [place] Overdose, unintentional: [place] levels back down again, still high at 1.0 this AM off fluids, appreciate nephrology input. LEATHA on CKD: resolved , appreciate nephrology input, renal function nearly back to baseline. Bipolar disorder: Hold lithium for now, will resume at lower dose at discharge, he will need close follow up to monitor lithium levels. AMS: Mental status much improved. SOme of his mental status is confounded by his bipolar issues. No need for LP, At this time, its uncertain if the behavorial, aggresive issue are due to his bipolar disease or due to delirum. At this time, will avoid use of sedatives, as much as possible, try to release restraints, and reassess the patient [facility] has been called to evaluate patient. Leucocytosis: likely reactive in nature, neg CT head, CXR, neg ua, neg blood urine cx so far, neg prolactin levels, wbc also rising despite being on vanco and rocephin. Will d/c abx today and monitor. Await peripheral smear. Chr pain: on gabapentin, hydrocodone, soma at home will resume same. DM: On sliding scale, glucose at goal. Maxillary sinusitis/ possible ca: CT face done, no e/o cancer. Pt may need outpatient ENT eval. Morbid obesity. DVT hep sq Diet Diabetic Full code Dispo: await [facility] input. Medical - PN: Qual - Stroke Symptom Onset Unknown: No - VTE Deep Vein Thrombosis/Pulmonary Embolism Present on Admission: No
[2017-02-23] MEDS: FINASTERIDE 5 MG TABLET PO SCH ×2 (08:16→12:46)
[2017-02-23] MEDS: sitaGLIPtin 100 MG TABLET PO SCH ×2 (08:16→12:48)
[2017-02-23] MEDS: CARISOPRODOL 350 MG TABLET PO SCH ×3 (08:16→19:59)
--- NOTE | 2017-02-23 08:58 | XRay Report ---
CLINICAL INFORMATION: Leukocytosis COMPARISON: 02/20/2017 FINDINGS: The heart is mildly enlarged - slightly increased. Mediastinum unremarkable. Pulmonary vessels are now mildly distended. There is no edema. Minor atelectasis seen in the right base - no definite infiltrates. No effusions IMPRESSION: Mild CHF and minimal right basilar atelectasis Interpreted and Authenticated by: Regulo Dupree 02/23/17
[2017-02-23] MEDS: cefTRIAXone 2 GM in DEXTROSE 5% IN WATER 50 ML IV SCH (09:26)
[2017-02-23] MEDS: THIAMINE 100 MG in 0.9 % SODIUM CHLORIDE 50 ML IV SCH (09:26)
[2017-02-23] MEDS: 0.9 % SODIUM CHLORIDE 1,000 ML IV SCH (11:18)
[2017-02-23] MEDS: VANCOMYCIN 1,500 MG in 0.9 % SODIUM CHLORIDE 500 ML IV SCH (14:13)
[2017-02-23] MEDS: lamoTRIgine 100 MG TABLET PO SCH (19:59)
[2017-02-23] MEDS: HYDROcodone/APAP 10/325MG TABLET PO PRN (22:19)
[2017-02-23] MEDS: SIMVASTATIN 20 MG TABLET PO SCH (22:20)
[2017-02-23] MEDS: SENNOSIDES/DOCUSATE SODIUM 1 TAB TABLET PO SCH (22:21)
[2017-02-23] MEDS: TAMSULOSIN 0.4 MG CAPSULE PO SCH (22:22)
[2017-02-24] MEDS: HYDROcodone/APAP 10/325MG TABLET PO PRN ×3 (03:08→20:03)
[2017-02-24 04:08] LABS: Appearance,Urine CLEAR; Bacteria,Urine 0 /hpf (0); Bilirubin,Urine NEG (NEG); Color,Urine YELLOW; Glucose,Urine (UA) NEGATIVE (NEG); Leukocyte Esterase,Urine NEG /uL (NEG); Mucus,Urine FEW /hpf (0); Nitrate,Urine NEG (NEG); Protein,Urine 30 mg/dL (NEG); Specific Gravity,Urine 1.018 (1.000-1.035); Urine Blood NEG mg/dL (<0.03); Urine RBC 4 /hpf (0-1); Urine Squamous Epithelial Cell < 1 /hpf (0-4); Urine Transitional Epi Cells < 1 /hpf (0-2); Urine WBC 2 /hpf (0-4); Urobilinogen,Urine NEG (NEG)
[2017-02-24] MEDS: amLODIPine 10 MG TABLET PO SCH ×2 (05:34→08:33)
[2017-02-24 05:41] LABS: Mean Cell Volume 97.5 fL (80.0-100.0); Mean Corpuscular HGB Conc 33.3 g/dL (31.0-36.0); Mean Corpuscular Hemoglobin 32.5 pg (26.0-34.0); Platelet Count 247 K/mcL (140-440); RBC 4.22 M/mcL (4.50-5.90)
[2017-02-24 05:52] LABS: ALT/SGPT 17 U/l (0-40); Albumin 3.6 gm/dL (3.2-5.2); Albumin/Globulin Ratio 1.6 (1.0-2.3); Alkaline Phosphatase 60 U/L (39-117); Bilirubin,Direct < 0.2 mg/dL (0.0-0.3); Blood Urea Nitrogen 8 mg/dl (8-23); Gamma Glutamyl Transpeptidase 17 U/L (8-61); Magnesium 1.4 mg/dL (1.6-2.5); Uric Acid 8.1 mg/dL (2.5-8.0)
[2017-02-24] MEDS: 0.9 % SODIUM CHLORIDE 10 ML SYRINGE IV SCH ×3 (06:12→22:10)
[2017-02-24 06:34] LABS: Band Neutrophils % 4 % (0-10); Eosinophils % (Manual) 1 % (0-7); Lymphocytes % 15 % (15-49); Monocytes % (Manual) 11 % (1-12); Platelet Estimate NORMAL (NORMAL); RBC Morphology NORMAL (NORMAL); Segmented Neutrophils % 69 % (38-78); Toxic Granulation 1+ (NONE SEEN)
[2017-02-24] MEDS ORDERED: MAGNESIUM SULFATE 2 GM/50 ML BAG IV ONE (08:28)
[2017-02-24] MEDS: HEPARIN 5,000 UNIT/ML VIAL SQ SCH ×2 (08:32→21:23)
[2017-02-24] MEDS: FINASTERIDE 5 MG TABLET PO SCH (08:33)
[2017-02-24] MEDS: PANTOPRAZOLE 40 MG TABLET PO SCH (08:33)
[2017-02-24] MEDS: CITALOPRAM 20 MG TABLET PO SCH (08:33)
[2017-02-24] MEDS: CARISOPRODOL 350 MG TABLET PO SCH ×2 (08:33→20:06)
[2017-02-24] MEDS: MULTIVIT,THER IRON,CA,FA & MIN 1 TABLET PO SCH (08:33)
[2017-02-24] MEDS: GABAPENTIN 300 MG CAPSULE PO SCH ×3 (08:33→20:03)
[2017-02-24] MEDS: sitaGLIPtin 100 MG TABLET PO SCH (08:33)
[2017-02-24] MEDS: DOCUSATE SODIUM 100 MG CAPSULE PO SCH ×2 (08:54→20:04)
[2017-02-24] MEDS: INSULIN LISPRO 1 UNIT/0.01 ML UNIT SQ SCH ×4 (08:54→20:18)
[2017-02-24] MEDS: cefTRIAXone 2 GM in DEXTROSE 5% IN WATER 50 ML IV SCH (10:12)
[2017-02-24] MEDS: VANCOMYCIN 1,500 MG in 0.9 % SODIUM CHLORIDE 500 ML IV SCH (11:05)
[2017-02-24] MEDS: 0.9 % SODIUM CHLORIDE 1,000 ML IV SCH (11:06)
[2017-02-24] MEDS: THIAMINE 100 MG in 0.9 % SODIUM CHLORIDE 50 ML IV SCH (13:14)
--- NOTE | 2017-02-24 15:01 | Internal Med Progress Note ---
Medical - PN: Subj Patient information: Note initiated : 02/24/17 at 2:57 pm Service Date, if different from initiated Date: [] Patient: Pcao Ramos 72 y/o M admitted on 02/21/17 for fall. Chief Complaint: [] Interval history: This is a 72 yr male admitted to the hospital with AMS, on eval not ed that patient had tremors, and depressed mentation, altered mentation, elevated lithium levels and renal failure. Patient was seen by nephrology, and IV fluids given, pt lithium levels improved. 02/22: patient seen examined, no acute overnight events, patient much more cooperative today, he was sitting comfortably eating breakfast. Labs reviewed with im. He is ok to get CT sinuses for eval for possible malignancy in the sinuses. 02/23: Pt seen examined, was sedated this AM, was very aggressive yesterday afternoon and overnight, needing 4 point restrains to maintain stability of lines and safety of nursing staff. Patient needed haldol and ativan to keep him calm. His wbc count is uptrending despite b eing on vanco and rocephin, his esr , crp is normal, prolactin is neg, ua neg and cxr clear. cultures have been neg so far he did manage to get CT sinus which is neg, he will need outpatient ENT referral 02/24: Pt seen examined, mental status much better today, out of restrains. AOOx1 only, WBC uptrending, on abx vanco and rocephin, procalcitonin is 0.11, CT chest abdo and pelvis without con ordered (pt allergic to contrast). Pertinent ROS: Denies headache, dizziness Denies chest pain, palpitations Denies cough or shortness of breath Denies abdominal pain, nausea or vomiting. - Constitutional Vitals: Vital Signs Temp Pulse Resp BP Pulse Ox 97.9 F 69 18 183/72 100 02/24/17 11:47 02/24/17 11:47 02/24/17 11:47 02/24/17 11:47 02/24/17 11:47 Period Temp Pulse Resp BP Sys/Ceron Pulse Ox Last 24 Hr 97.9 F-98.7 F 60-69 18-20 141-183/72-115 92-100 Intake and Output 02/24/17 02/24/17 02/24/17 05:59 13:59 21:59 Intake Total 280 / 280 290 / 290 240 / 240 Output Total 450 / 450 Balance -170 / -170 290 / 290 240 / 240 Intake & Output: Intake & Output 02/24/17 02/24/17 02/24/17 05:59 13:59 21:59 Intake Total 280 / 280 290 / 290 240 / 240 Output Total 450 / 450 Balance -170 / -170 290 / 290 240 / 240 Intake: IV 50 / 50 Rocephin 2 gm In Dextrose 50 / 50 5% in Water 50 ml @ 100 mls/hr IV Q24H [facility] Rx#: [id number] Oral 280 / 280 240 / 240 240 / 240 Output: Void Amount 250 / 250 Stool 200 / 200 Other: Meal Ice cream Percent of Meal Consumed 50% Feeding Ability Total Assistance # Voids 1 # Bowel Movements 1 Exam: Constitutional; Afebrile, cooperative, alert, not in distress, obese Eyes- No icterus, , No periorbital swelling Ears- Ext ear normal, hearing normal to conversation. Neck- Midline trachea, supple Respiratory system: Air Entry equal on both sides, No crackles or wheezing, no rhonchi. CVS- Rate rhythm regular, S1,S2 heard, no gallop, no rub. Abdomen- Soft nontender abdomen, no organomegaly, no tenderness, no guarding or rigidity, [employer]- AOOx1 (self) , moving all extremities, no gross focal deficit noted. Medical - PN: Obj Da - Labs CBC & Chem 7: 02/24/17 03:52 02/24/17 03:52 Labs: Abnormal Lab Results 02/24/17 02/24/17 02/24/17 03:52 03:52 03:31 WBC 14.9 H RBC 4.22 L Hgb Hct Lymph % (Auto) Gran # Lymph # (Auto) Nelson # (Auto) Seg Neutrophils % Lymphocytes % WBC Morphology Abnorm A Vacuolated Monocytes 1+ A Toxic Granulation 1+ A ABG Methemoglobin VBG pCO2 VBG pO2 VBG HCO3 VBG Total CO2 VBG O2 Saturation VBG Base Excess Carboxyhemoglobin Total Hemoglobin Carbon Dioxide BUN Creatinine Glucose 161 H Uric Acid 8.1 H Phosphorus 2.6 L Magnesium 1.4 L Total Protein Globulin Triglycerides 157 H Beta-Hydroxybutyrate Urine Protein 30 A Urine Ketones 20 A Urine RBC 4 H Acetaminophen Waterproof 02/23/17 02/23/1702/22/17 03:40 03:40 20:58 WBC 13.8 H RBC 3.74 L Hgb 12.2 L Hct 36.3 L Lymph % (Auto) Gran # Lymph # (Auto) Nelson # (Auto) Seg Neutrophils % 83 H Lymphocytes % 9 L WBC Morphology Vacuolated Monocytes Toxic Granulation ABG Methemoglobin VBG pCO2 VBG pO2 VBG HCO3 VBG Total CO2 VBG O2 Saturation VBG Base Excess Carboxyhemoglobin Total Hemoglobin Carbon Dioxide 21 L BUN Creatinine Glucose 129 H 152 H Uric Acid 8.5 H 8.4 H Phosphorus 2.1 L 2.3 L Magnesium 1.4 L Total Protein 5.7 L 5.2 L Globulin 2.1 L 1.6 L Triglycerides 186 H 181 H Beta-Hydroxybutyrate Urine Protein Urine Ketones Urine RBC Acetaminophen Waterproof 02/22/17 02/22/17 02/22/17 20:58 04:12 04:12 WBC 12.1 H RBC 3.66 L Hgb 11.9 L Hct 35.2 L Lymph % (Auto) 11.3 L Gran # 9.3 H Lymph # (Auto) 1.4 L Nelson # (Auto) Seg Neutrophils % Lymphocytes % WBC Morphology Vacuolated Monocytes Toxic Granulation ABG Methemoglobin VBG pCO2 VBG pO2 VBG HCO3 VBG Total CO2 VBG O2 Saturation VBG Base Excess Carboxyhemoglobin Total Hemoglobin Carbon Dioxide BUN Creatinine Glucose Uric Acid Phosphorus Magnesium Total Protein Globulin Triglycerides Beta-Hydroxybutyrate Urine Protein Urine Ketones Urine RBC Acetaminophen < 5.0 L Waterproof 1.4 H 02/22/17 02/22/17 02/21/17 04:12 04:12 18:57 WBC 11.2 H RBC 3.65 L Hgb 12.1 L Hct 35.5 L Lymph % (Auto) Gran # Lymph # (Auto) Nelson # (Auto) Seg Neutrophils % Lymphocytes % WBC Morphology Vacuolated Monocytes Toxic Granulation ABG Methemoglobin 0.1 L VBG pCO2 36.0 L VBG pO2 124 H VBG HCO3 20.8 L VBG Total CO2 21.9 L VBG O2 Saturation 95.8 H VBG Base Excess -3.8 L Carboxyhemoglobin 2.8 H Total Hemoglobin 11.8 L Carbon Dioxide 21 L BUN Creatinine Glucose 128 H Uric Acid 9.1 H Phosphorus 2.5 L Magnesium Total Protein 5.5 L Globulin 1.9 L Triglycerides 173 H Beta-Hydroxybutyrate Urine Protein Urine Ketones Urine RBC Acetaminophen Waterproof 02/21/17 02/21/17 02/21/17 14:40 14:40 14:40 WBC RBC Hgb Hct Lymph % (Auto) Gran # Lymph # (Auto) Nelson # (Auto) Seg Neutrophils % Lymphocytes % WBC Morphology Vacuolated Monocytes Toxic Granulation ABG Methemoglobin VBG pCO2 VBG pO2 VBG HCO3 VBG Total CO2 VBG O2 Saturation VBG Base Excess Carboxyhemoglobin Total Hemoglobin Carbon Dioxide 20 L BUN 31 H Creatinine 2.1 H Glucose 163 H Uric Acid Phosphorus Magnesium Total Protein 5.7 L Globulin 2.0 L Triglycerides Beta-Hydroxybutyrate 0.43 H Urine Protein Urine Ketones Urine RBC Acetaminophen Waterproof 2.5 H* 02/21/17 14:40 WBC 12.5 H RBC 3.63 L Hgb 11.8 L Hct 34.8 L Lymph % (Auto) Gran # 8.7 H Lymph # (Auto) Nelson # (Auto) 1.1 H Seg Neutrophils % Lymphocytes % WBC Morphology Vacuolated Monocytes Toxic Granulation ABG Methemoglobin VBG pCO2 VBG pO2 VBG HCO3 VBG Total CO2 VBG O2 Saturation VBG Base Excess Carboxyhemoglobin Total Hemoglobin Carbon Dioxide BUN Creatinine Glucose Uric Acid Phosphorus Magnesium Total Protein Globulin Triglycerides Beta-Hydroxybutyrate Urine Protein Urine Ketones Urine RBC Acetaminophen Waterproof Meds: Medications Acetaminophen (Tylenol) 650 mg PO Q4-6HP PRN PRN Reason: PAIN/FEVER > 101 Last Admin: 02/21/17 12:40 Dose: 650 mg Hydrocodone Bitart/Acetaminophen ([place] 10/325mg) 1 tab PO Q4-6HP PRN PRN Reason: Pain Last Admin: 02/24/17 14:03 Dose: 1 tab Amlodipine Besylate (Norvasc) 10 mg PO DAILY [facility] Last Admin: 02/24/17 08:33 Dose: 10 mg Carisoprodol (Soma) 350 mg PO BID [facility] Last Admin: 02/24/17 08:33 Dose: 350 mg Citalopram Hydrobromide (Celexa) 20 mg PO DAILY [facility] Last Admin: 02/24/17 08:33 Dose: 20 mg Dextrose (Dextrose 50%) 0 ml IV UD PRN PRN Reason: Hypoglycemia Diagnostic Test (Pha) (Accu-Chek) 1 each FS ACHS [facility] Last Admin: 02/24/17 11:49 Dose: 1 each Docusate Sodium (Colace) 100 mg PO BID [facility] Last Admin: 02/24/17 08:54 Dose: Not Given Finasteride (Proscar) 5 mg PO DAILY [facility] Last Admin: 02/24/17 08:33 Dose: 5 mg Gabapentin (Neurontin) 600 mg PO TID [facility] Last Admin: 02/24/17 14:04 Dose: 600 mg Haloperidol Lactate (Haldol) 2 mg IV Q4HP PRN PRN Reason: ANXIETY/SEDATION Last Admin: 02/23/17 05:47 Dose: 2 mg Heparin Sodium (Porcine) (Heparin) 5,000 unit SQ Q12 [facility] Last Admin: 02/24/17 08:32 Dose: 5,000 unit Ceftriaxone Sodium 2 gm/ (Dextrose) 50 mls @ 100 mls/hr IV Q24H [facility] Last Infusion: 02/24/17 11:05 Dose: Infused Magnesium Sulfate (Magnesium Sulfate) 2 gm in 50 mls @ 50 mls/hr IV UD PRN PRN Reason: MG = or < 1.7 Last Admin: 02/24/17 08:34 Dose: 50 mls/hr Sodium Chloride (Sodium Chloride 0.9%) 1,000 mls @ 20 mls/hr IV .Q24H [facility] Last Admin: 02/24/17 11:06 Dose: Not Given Vancomycin HCl 1,500 mg/ (Sodium Chloride) 500 mls @ 333.3 mls/hr IV Q24H [facility] Last Admin: 02/24/17 11:05 Dose: 333 mls/hr Insulin Human Lispro (Humalog) 0 unit SQ ACHS [facility] PRN Reason: Protocol Last Admin: 02/24/17 11:48 Dose: 1 unit Iron Carb/Multivit/Stokes/Folic Acid (Multivitamin W/Minerals) 1 tab PO DAILY [facility] Last Admin: 02/24/17 08:33 Dose: 1 tab Lamotrigine (Lamictal) 200 mg PO HS [facility] Last Admin: 02/23/17 19:59 Dose: 200 mg Waterproof Carbonate (Waterproof Carbonate) 300 mg PO BID [facility] Lorazepam (Ativan) 1 - 2 mg IV Q4-6HP PRN PRN Reason: ANXIETY/SEDATION Last Admin: 02/23/17 03:22 Dose: 2 mg Ondansetron HCl (Zofran) 4 mg IV Q4-6HP PRN PRN Reason: Nausea And Vomiting Pantoprazole Sodium (Protonix) 40 mg PO QAMAC [facility] Last Admin: 02/24/17 08:33 Dose: 40 mg Senna/Docusate Sodium (Senna Plus Tablet) 1 tab PO HS [facility] Last Admin: 02/23/17 22:21 Dose: Not Given Simvastatin (Zocor) 20 mg PO [facility] Last Admin: 02/23/17 22:20 Dose: Not Given Sitagliptin Phosphate (Januvia) 50 mg PO DAILY [facility] Last Admin: 02/24/17 08:33 Dose: 50 mg Sodium Chloride (Saline Flush) 10 ml IV Q8 [facility] Last Admin: 02/24/17 14:04 Dose: 10 ml Tamsulosin HCl (Flomax) 0.4 mg PO [facility] Last Admin: 02/23/17 22:22 Dose: Not Given - ABG Interpretation ABG results: 02/21/17 18:57 ABG Methemoglobin 0.1 L VBG pH 7.38 VBG pCO2 36.0 L VBG pO2 124 H VBG HCO3 20.8 L VBG Total CO2 21.9 L VBG O2 Saturation 95.8 H VBG Base Excess -3.8 L Medical - PN: A/P - Time Spent With Patient Total time spent is greater than 50% in coordination of care (as documented) at patient's floor/unit and/or counseling patient: - Narrative A/P Narrative: A/P Waterproof Overdose, unintentional: Waterproof levels back down again, 0.6 this AM, resume lithium at 300mg bid (was 300mg tid) LEATHA on CKD: resolved , appreciate nephrology input, renal function nearly back to baseline. Bipolar disorder: resume lithium now at lower dose, he will need close follow up to monitor lithium levels. AMS: Mental status much improved. likely related to lithium overdose and UTI, clinically improviing, will be stable for D/C likely in AM assuming CT is negative. Leucocytosis: likely reactive, await CT chest abdo and pelvis results. Chr pain: on gabapentin, hydrocodone, soma at home will resume same. DM: On sliding scale, glucose at goal. Maxillary sinusitis/ possible ca: CT face done, no e/o cancer. Pt may need outpatient ENT eval. Morbid obesity. DVT hep sq Diet Diabetic Full code Dispo: await [facility] input. Medical - PN: Qual - Stroke Symptom Onset Unknown: No - VTE Deep Vein Thrombosis/Pulmonary Embolism Present on Admission: No
--- NOTE | 2017-02-24 15:28 | Cat Scan Report ---
CLINICAL INFORMATION: Increasing white blood cell count COMPARISON: None. TECHNIQUE: Enteric contrast was utilized. 80 cc of Isovue-300 were injected intravenously, and 50 seconds later 2.5 mm helical slices were obtained from the lung apices through the subtrochanteric regions of the femurs. Following reconstruction, 2.5 mm sagittal, coronal and axial reformatted images were processed and reviewed at multiple windows and levels. 7 mm MIP reconstructions were obtained through the lungs to optimize nodule detection. FINDINGS: Pulmonary parenchymal windows show the lungs are clear. Tiny bilateral pleural effusions noted. Mediastinal windows show moderate cardiomegaly is calcific plaque in the coronary arteries. The noncontrasted thoracic aorta and pulmonary arteries are normal in contour and caliber. Small hiatal hernia is noted. Is no adenopathy in the mediastinal hilar or axillary regions. Thyroid is grossly normal Images through the abdomen show the noncontrasted liver to be unremarkable. The gallbladder is surgically absent. Intrahepatic and common bile ducts are normal caliber CBD is 5 mm. Is a 2.4 [place] simple cyst inferior pole the left kidney, but no significant renal abnormality. The adrenal glands, spleen, pancreas and noncontrast aorta are unremarkable. Images of pelvis show urinary bladder prostate seminal vesicles to be normal. Small amount of free fluid is noted in the right paracolic gutter and there is mild inflammatory changes in the pericolonic fat adjacent to the ascending colon. Patient may have colitis. Remainder of the colon small bowel stomach are normal. Anterior abdominal wall hernia repair changes noted with a small recurrence in the right upper quadrant consisting only of a 4 cm focus of mesenteric fat. It has herniated the Camper's fascia. The bone windows show no osseous abnormality. IMPRESSION: Right paracolonic gutter fluid and inflammatory changes in the pericolonic fat adjacent to the ascending colon. This could indicate colitis. Consider colonoscopy. No other potential source of infection in the chest abdomen or pelvis. Status post ventral wall hernia repair. A small (4 cm) recurrent hernia is noted in the right upper quadrant adjacent - this consists only mesenteric fat. Chest shows mild cardiomegaly, but is otherwise unremarkable. Interpreted and Authenticated by: Regulo Dupree 02/24/17
[2017-02-24] MEDS: metroNIDAZOLE 500 MG/100 ML BAG IV SCH ×2 (16:16→22:10)
[2017-02-24] MEDS: HALOPERIDOL LACTATE 5 MG/ML VIAL IV PRN (17:26)
[2017-02-24] MEDS ORDERED: HALOPERIDOL LACTATE 5 MG/ML VIAL IV PRN (18:06)
[2017-02-24] MEDS: SIMVASTATIN 20 MG TABLET PO SCH (20:03)
[2017-02-24] MEDS: TAMSULOSIN 0.4 MG CAPSULE PO SCH (20:03)
[2017-02-24] MEDS: SENNOSIDES/DOCUSATE SODIUM 1 TAB TABLET PO SCH (20:04)
[2017-02-24] MEDS: lamoTRIgine 100 MG TABLET PO SCH (20:06)
[2017-02-24] MEDS: LITHIUM CARBONATE 150 MG CAPSULE PO SCH (20:19)
[2017-02-25] MEDS: HYDROcodone/APAP 10/325MG TABLET PO PRN ×3 (02:48→16:33)
[2017-02-25] MEDS: ACETAMINOPHEN 325 MG TABLET PO PRN (04:39)
[2017-02-25 05:20] LABS: Mean Cell Volume 98.1 fL (80.0-100.0); Mean Corpuscular HGB Conc 33.6 g/dL (31.0-36.0); Platelet Count 224 K/mcL (140-440); RBC 3.92 M/mcL (4.50-5.90); Red Cell Distribution Width 13.1 % (11.5-14.5)
[2017-02-25] MEDS: 0.9 % SODIUM CHLORIDE 10 ML SYRINGE IV SCH ×3 (05:22→21:50)
[2017-02-25] MEDS: metroNIDAZOLE 500 MG/100 ML BAG IV SCH ×3 (05:22→21:50)
[2017-02-25 05:46] LABS: ALT/SGPT 15 U/l (0-40); Albumin 3.8 gm/dL (3.2-5.2); Albumin/Globulin Ratio 1.7 (1.0-2.3); Alkaline Phosphatase 60 U/L (39-117); Bilirubin,Direct < 0.2 mg/dL (0.0-0.3); Blood Urea Nitrogen 10 mg/dl (8-23); Gamma Glutamyl Transpeptidase 18 U/L (8-61); Uric Acid 7.8 mg/dL (2.5-8.0)
[2017-02-25 06:27] LABS: Eosinophils % (Manual) 5 % (0-7); Lymphocytes % 22 % (15-49); Monocytes % (Manual) 10 % (1-12); Platelet Estimate NORMAL (NORMAL); RBC Morphology NORMAL (NORMAL); Segmented Neutrophils % 61 % (38-78)
[2017-02-25] MEDS: HEPARIN 5,000 UNIT/ML VIAL SQ SCH ×2 (08:09→21:38)
[2017-02-25] MEDS: INSULIN LISPRO 1 UNIT/0.01 ML UNIT SQ SCH ×4 (08:09→21:39)
[2017-02-25] MEDS: CITALOPRAM 20 MG TABLET PO SCH (08:10)
[2017-02-25] MEDS: amLODIPine 10 MG TABLET PO SCH (08:10)
[2017-02-25] MEDS: CARISOPRODOL 350 MG TABLET PO SCH ×2 (08:10→21:39)
[2017-02-25] MEDS: sitaGLIPtin 100 MG TABLET PO SCH (08:10)
[2017-02-25] MEDS: FINASTERIDE 5 MG TABLET PO SCH (08:10)
[2017-02-25] MEDS: DOCUSATE SODIUM 100 MG CAPSULE PO SCH ×2 (08:10→21:38)
[2017-02-25] MEDS: PANTOPRAZOLE 40 MG TABLET PO SCH (08:10)
[2017-02-25] MEDS: MULTIVIT,THER IRON,CA,FA & MIN 1 TABLET PO SCH (08:10)
[2017-02-25] MEDS: GABAPENTIN 300 MG CAPSULE PO SCH ×3 (08:10→21:39)
[2017-02-25] MEDS: LITHIUM CARBONATE 150 MG CAPSULE PO SCH ×2 (08:12→21:39)
[2017-02-25] MEDS: cefTRIAXone 2 GM in DEXTROSE 5% IN WATER 50 ML IV SCH (09:06)
--- NOTE | 2017-02-25 10:47 | Internal Med Progress Note ---
Medical - PN: Subj Patient information: Note initiated : 02/25/17 at 10:44 am Service Date, if different from initiated Date: [] Patient: Paco Ramos 72 y/o M admitted on 02/21/17 for fall. Chief Complaint: [] Interval history: This is a 72 yr male admitted to the hospital with AMS, on eval not ed that patient had tremors, and depressed mentation, altered mentation, elevated lithium levels and renal failure. Patient was seen by nephrology, and IV fluids given, pt lithium levels improved. 02/22: patient seen examined, no acute overnight events, patient much more cooperative today, he was sitting comfortably eating breakfast. Labs reviewed with im. He is ok to get CT sinuses for eval for possible malignancy in the sinuses. 02/23: Pt seen examined, was sedated this AM, was very aggressive yesterday afternoon and overnight, needing 4 point restrains to maintain stability of lines and safety of nursing staff. Patient needed haldol and ativan to keep him calm. His wbc count is uptrending despite b eing on vanco and rocephin, his esr , crp is normal, prolactin is neg, ua neg and cxr clear. cultures have been neg so far he did manage to get CT sinus which is neg, he will need outpatient ENT referral 02/24: Pt seen examined, mental status much better today, out of restrains. AOOx1 only, WBC uptrending, on abx vanco and rocephin, procalcitonin is 0.11, CT chest abdo and pelvis without con ordered (pt allergic to contrast). 02/25: Patient seen examined, had some issues with aggressive behaviour last night, but no issues today, he admits that he was paranoid last night, his wbc count is trending down, his CT shows some colitis, but no other issues, IV flagyl started. Pt is able to tolerate po meds well. Given that his labs are stable, he can tolerate po and improvement in mental status, the patient seems to be back at baseline. He needs to follow up with ENT for evaluation of mucosal thickening in the maxillay sinus. He needs to follow up with GI as outpatient for colonoscopy. Otherwise he can be evaluated by [facility] for placement. Will d/c once place found Pertinent ROS: Denies headache, dizziness Denies chest pain, palpitations Denies cough or shortness of breath Denies abdominal pain, nausea or vomiting. - Constitutional Vitals: Vital Signs Temp Pulse Resp BP Pulse Ox 97.6 F 59 L 18 143/82 99 02/25/17 06:42 02/25/17 03:29 02/25/17 06:42 02/25/17 06:42 02/25/17 06:42 Period Temp Pulse Resp BP Sys/Ceron Pulse Ox Last 24 Hr 97.3 F-99.2 F 54-78 18-22 142-183/72-93 97-100 Intake and Output 02/24/17 02/25/17 02/25/17 21:59 05:59 13:59 Intake Total 1291 / 1291 460 / 460 Output Total 300 / 300 2 / 2 Balance 991 / 991 458 / 458 Weight 289 lb 14.4 oz Intake & Output: Intake & Output 02/24/17 02/25/17 02/25/17 21:59 05:59 13:59 Intake Total 1291 / 1291 460 / 460 Output Total 300 / 300 2 / 2 Balance 991 / 991 458 / 458 Weight 289 lb 14.4 oz Intake: IV 751 / 751 100 / 100 Oral 540 / 540 360 / 360 Output: Void Amount 300 / 300 # of times incontinent of 2 / 2 urine Other: # Voids 1 # Bowel Movements 1 Exam: Constitutional; Afebrile, cooperative, alert, not in distress, morbidly obese Eyes- No icterus, , No periorbital swelling Ears- Ext ear normal, hearing normal to conversation. Neck- Midline trachea, supple Respiratory system: Air Entry equal on both sides, No crackles or wheezing, no rhonchi. CVS- Rate rhythm regular, S1,S2 heard, no gallop, no rub. Abdomen- Soft nontender abdomen, no organomegaly, no tenderness, no guarding or rigidity, large abdomen. [employer]- AOOx2, moving all extremities, no gross focal deficit noted. Medical - PN: Obj Da - Labs CBC & Chem 7: 02/25/17 03:40 02/25/17 03:40 Labs: Abnormal Lab Results 02/25/17 02/25/17 02/24/17 03:40 03:40 03:52 WBC 14.5 H RBC 3.92 L Hgb 12.9 L Hct 38.4 L Lymph % (Auto) Gran # Lymph # (Auto) Seg Neutrophils % Lymphocytes % WBC Morphology Abnorm A Vacuolated Monocytes 1+ A Toxic Granulation Carbon Dioxide Glucose 156 H 161 H Uric Acid 8.1 H Phosphorus 2.5 L 2.6 L Magnesium 1.4 L Total Protein Globulin Triglycerides 212 H 157 H Urine Protein Urine Ketones Urine RBC 02/24/17 02/24/17 02/23/17 03:52 03:31 03:40 WBC 14.9 H RBC 4.22 L Hgb Hct Lymph % (Auto) Gran # Lymph # (Auto) Seg Neutrophils % Lymphocytes % WBC Morphology Abnorm A Vacuolated Monocytes 1+ A Toxic Granulation 1+ A Carbon Dioxide Glucose 129 H Uric Acid 8.5 H Phosphorus 2.1 L Magnesium Total Protein 5.7 L Globulin 2.1 L Triglycerides 186 H Urine Protein 30 A Urine Ketones 20 A Urine RBC 4 H 02/23/17 02/22/17 02/22/17 03:40 20:58 20:58 WBC 13.8 H 12.1 H RBC 3.74 L 3.66 L Hgb 12.2 L 11.9 L Hct 36.3 L 35.2 L Lymph % (Auto) 11.3 L Gran # 9.3 H Lymph # (Auto) 1.4 L Seg Neutrophils % 83 H Lymphocytes % 9 L WBC Morphology Vacuolated Monocytes Toxic Granulation Carbon Dioxide 21 L Glucose 152 H Uric Acid 8.4 H Phosphorus 2.3 L Magnesium 1.4 L Total Protein 5.2 L Globulin 1.6 L Triglycerides 181 H Urine Protein Urine Ketones Urine RBC Meds: Medications Acetaminophen (Tylenol) 650 mg PO Q4-6HP PRN PRN Reason: PAIN/FEVER > 101 Last Admin: 02/25/17 04:39 Dose: 650 mg Hydrocodone Bitart/Acetaminophen ([place] 10/325mg) 1 tab PO Q4-6HP PRN PRN Reason: Pain Last Admin: 02/25/17 08:15 Dose: 1 tab Amlodipine Besylate (Norvasc) 10 mg PO DAILY [facility] Last Admin: 02/25/17 08:10 Dose: 10 mg Carisoprodol (Soma) 350 mg PO BID [facility] Last Admin: 02/25/17 08:10 Dose: 350 mg Citalopram Hydrobromide (Celexa) 20 mg PO DAILY [facility] Last Admin: 02/25/17 08:10 Dose: 20 mg Dextrose (Dextrose 50%) 0 ml IV UD PRN PRN Reason: Hypoglycemia Diagnostic Test (Pha) (Accu-Chek) 1 each FS ACHS [facility] Last Admin: 02/25/17 08:09 Dose: 1 each Docusate Sodium (Colace) 100 mg PO BID [facility] Last Admin: 02/25/17 08:10 Dose: Not Given Finasteride (Proscar) 5 mg PO DAILY [facility] Last Admin: 02/25/17 08:10 Dose: 5 mg Gabapentin (Neurontin) 600 mg PO TID [facility] Last Admin: 02/25/17 08:10 Dose: 600 mg Haloperidol Lactate (Haldol) 5 mg IV Q4HP PRN PRN Reason: ANXIETY/SEDATION Heparin Sodium (Porcine) (Heparin) 5,000 unit SQ Q12 [facility] Last Admin: 02/25/17 08:09 Dose: 5,000 unit Ceftriaxone Sodium 2 gm/ (Dextrose) 50 mls @ 100 mls/hr IV Q24H [facility] Last Admin: 02/25/17 09:06 Dose: 100 mls/hr Magnesium Sulfate (Magnesium Sulfate) 2 gm in 50 mls @ 50 mls/hr IV UD PRN PRN Reason: MG = or < 1.7 Last Infusion: 02/24/17 19:32 Dose: Infused Sodium Chloride (Sodium Chloride 0.9%) 1,000 mls @ 20 mls/hr IV .Q24H [facility] Last Admin: 02/24/17 11:06 Dose: Not Given Metronidazole (Flagyl) 500 mg in 100 mls @ 100 mls/hr IV Q8H [facility] Last Admin: 02/25/17 05:22 Dose: 100 mls/hr Insulin Human Lispro (Humalog) 0 unit SQ [facility] PRN Reason: Protocol Last Admin: 02/25/17 08:09 Dose: 1 unit Iron Carb/Multivit/[employer]/Folic Acid (Multivitamin W/Minerals) 1 tab PO DAILY [facility] Last Admin: 02/25/17 08:10 Dose: 1 tab Lamotrigine (Lamictal) 200 mg PO HS [facility] Last Admin: 02/24/17 20:06 Dose: 200 mg [place] Carbonate (Iota Carbonate) 300 mg PO BID [facility] Last Admin: 02/25/17 08:12 Dose: 300 mg Lorazepam (Ativan) 1 - 2 mg IV Q4-6HP PRN PRN Reason: ANXIETY/SEDATION Last Admin: 02/23/17 03:22 Dose: 2 mg Ondansetron HCl (Zofran) 4 mg IV Q4-6HP PRN PRN Reason: Nausea And Vomiting Pantoprazole Sodium (Protonix) 40 mg PO QAMAC [facility] Last Admin: 02/25/17 08:10 Dose: 40 mg Senna/Docusate Sodium (Senna Plus Tablet) 1 tab PO [facility] Last Admin: 02/24/17 20:04 Dose: Not Given Simvastatin (Zocor) 20 mg PO [facility] Last Admin: 02/24/17 20:03 Dose: 20 mg Sitagliptin Phosphate (Januvia) 50 mg PO DAILY [facility] Last Admin: 02/25/17 08:10 Dose: 50 mg Sodium Chloride (Saline Flush) 10 ml IV Q8 [facility] Last Admin: 02/25/17 05:22 Dose: Not Given Tamsulosin HCl (Flomax) 0.4 mg PO [facility] Last Admin: 02/24/17 20:03 Dose: 0.4 mg - ABG Interpretation ABG results: 02/21/17 18:57 ABG Methemoglobin 0.1 L VBG pH 7.38 VBG pCO2 36.0 L VBG pO2 124 H VBG HCO3 20.8 L VBG Total CO2 21.9 L VBG O2 Saturation 95.8 H VBG Base Excess -3.8 L Medical - PN: A/P - Time Spent With Patient Total time spent is greater than 50% in coordination of care (as documented) at patient's floor/unit and/or counseling patient: - Narrative A/P Narrative: A/P Iota Overdose, unintentional: Iota levels back down again, 0.6 this AM, resume lithium at 300mg bid (was 300mg tid) LEATHA on CKD: resolved , appreciate nephrology input, renal function nearly back to baseline. Colitis: On rocepin, and started on flagyl yesterday, check stool cultures, pt can be switched to orals at time of discharge. GI follow up as outpatient. Bipolar disorder: resume lithium now at lower dose, he will need close follow up to monitor lithium levels. Await [facility] eval for placement AMS: Mental status much improved, combination of infection, lithium overdose and bipolar disorder. Chr pain: on gabapentin, hydrocodone, soma at home will resume same. DM: On sliding scale, glucose at goal. Maxillary sinusitis/ possible ca: CT face done, no e/o cancer. Pt may need outpatient ENT eval. Morbid obesity. DVT hep sq Diet Diabetic Full code Dispo: await [facility] input, medically back to baseline, stable for d/c Medical - PN: Qual - Stroke Symptom Onset Unknown: No - VTE Deep Vein Thrombosis/Pulmonary Embolism Present on Admission: No
[2017-02-25] MEDS: 0.9 % SODIUM CHLORIDE 1,000 ML IV SCH (13:16)
[2017-02-25] MEDS: TAMSULOSIN 0.4 MG CAPSULE PO SCH (21:38)
[2017-02-25] MEDS: SIMVASTATIN 20 MG TABLET PO SCH (21:39)
[2017-02-25] MEDS: SENNOSIDES/DOCUSATE SODIUM 1 TAB TABLET PO SCH (21:39)
[2017-02-25] MEDS: lamoTRIgine 100 MG TABLET PO SCH (21:39)
[2017-02-26] MEDS: HYDROcodone/APAP 10/325MG TABLET PO PRN ×4 (03:18→22:08)
[2017-02-26 05:24] LABS: Mean Cell Volume 97.8 fL (80.0-100.0); Mean Corpuscular HGB Conc 34.1 g/dL (31.0-36.0); Mean Corpuscular Hemoglobin 33.3 pg (26.0-34.0); Platelet Count 221 K/mcL (140-440); RBC 3.65 M/mcL (4.50-5.90); Red Cell Distribution Width 13.2 % (11.5-14.5)
[2017-02-26] MEDS: metroNIDAZOLE 500 MG/100 ML BAG IV SCH ×3 (05:44→21:46)
[2017-02-26] MEDS: 0.9 % SODIUM CHLORIDE 10 ML SYRINGE IV SCH ×3 (05:44→23:17)
[2017-02-26 05:47] LABS: ALT/SGPT 14 U/l (0-40); Albumin 3.5 gm/dL (3.2-5.2); Albumin/Globulin Ratio 1.5 (1.0-2.3); Alkaline Phosphatase 57 U/L (39-117); Bilirubin,Direct < 0.2 mg/dL (0.0-0.3); Blood Urea Nitrogen 10 mg/dl (8-23); Gamma Glutamyl Transpeptidase 19 U/L (8-61); Uric Acid 7.1 mg/dL (2.5-8.0)
[2017-02-26 06:22] LABS: Band Neutrophils % 2 % (0-10); Basophils % (Manual) 1 % (0-2); Eosinophils % (Manual) 5 % (0-7); Lymphocytes % 14 % (15-49); Monocytes % (Manual) 7 % (1-12); Platelet Estimate NORMAL (NORMAL); RBC Morphology NORMAL (NORMAL); Segmented Neutrophils % 71 % (38-78)
[2017-02-26] MEDS: INSULIN LISPRO 1 UNIT/0.01 ML UNIT SQ SCH ×4 (08:04→20:06)
[2017-02-26] MEDS: PANTOPRAZOLE 40 MG TABLET PO SCH (08:04)
[2017-02-26] MEDS: metFORMIN 500 MG TABLET PO SCH ×2 (08:04→17:22)
[2017-02-26] MEDS: LITHIUM CARBONATE 150 MG CAPSULE PO SCH ×2 (10:07→20:07)
[2017-02-26] MEDS: sitaGLIPtin 100 MG TABLET PO SCH (10:08)
[2017-02-26] MEDS: CARISOPRODOL 350 MG TABLET PO SCH ×2 (10:08→20:06)
[2017-02-26] MEDS: LISINOPRIL 20 MG TABLET PO SCH (10:08)
[2017-02-26] MEDS: MULTIVIT,THER IRON,CA,FA & MIN 1 TABLET PO SCH (10:08)
[2017-02-26] MEDS: FUROSEMIDE 20 MG TABLET PO SCH (10:08)
[2017-02-26] MEDS: GABAPENTIN 300 MG CAPSULE PO SCH ×3 (10:08→20:07)
[2017-02-26] MEDS: CITALOPRAM 20 MG TABLET PO SCH (10:08)
[2017-02-26] MEDS: FINASTERIDE 5 MG TABLET PO SCH (10:08)
[2017-02-26] MEDS: DOCUSATE SODIUM 100 MG CAPSULE PO SCH ×2 (10:08→20:07)
[2017-02-26] MEDS: amLODIPine 10 MG TABLET PO SCH (10:08)
[2017-02-26] MEDS: cefTRIAXone 2 GM in DEXTROSE 5% IN WATER 50 ML IV SCH (10:09)
[2017-02-26] MEDS: HEPARIN 5,000 UNIT/ML VIAL SQ SCH ×2 (10:09→20:06)
--- NOTE | 2017-02-26 11:07 | Internal Med Progress Note ---
Medical - PN: Subj Patient information: Note initiated : 02/26/17 at 11:07 am Patient: Paco Ramos 72 y/o M admitted on 02/21/17 for fall. Interval history: march 01, 2017: History of present illness: This is a 72 yr male admitted to the hospital with AMS, on eval not ed that patient had tremors, and depressed mentation, altered mentation, elevated lithium levels and renal failure. Patient was seen by nephrology, and IV fluids given, pt lithium levels improved. 02/22: patient seen examined, no acute overnight events, patient much more cooperative today, he was sitting comfortably eating breakfast. Labs reviewed with him. He is ok to get CT sinuses for eval for possible malignancy in the sinuses. 02/23: Pt seen examined, was sedated this AM, was very aggressive yesterday afternoon and overnight, needing 4 point restrains to maintain stability of lines and safety of nursing staff. Patient needed haldol and ativan to keep him calm. His wbc count is uptrending despite being on vanco and rocephin, his esr, crp is normal, prolactin is neg, ua neg and cxr clear. cultures have been neg so far he did manage to get CT sinus which is neg, he will need outpatient ENT referral 02/24: Pt seen examined, mental status much better today, out of restrains. AOOx1 only, WBC uptrending, on abx vanco and rocephin, procalcitonin is 0.11, CT chest abdo and pelvis without con ordered (pt allergic to contrast). 02/25: Patient seen examined, had some issues with aggressive behavior last night , but no issues today, he admits that he was paranoid last night, his wbc count is trending down, his CT shows some colitis, but no other issues, IV flagyl started. Pt is able to tolerate po meds well. Given that his labs are stable, he can tolerate po and improvement in mental status, the patient seems to be back at baseline. He needs to follow up with ENT for evaluation of mucosal thickening in the maxillay sinus. He needs to follow up with GI as outpatient for colonoscopy. Otherwise he can be evaluated by [facility] for placement. Will d/c once place found February 26: as noted above, this patient was admitted with frequent falls and confusion. He was also diagnosed with possible UTI, as well as a mild right- sided colitis. He was treated with IV fluids and IV antibiotics. White blood cell count is slowly trending downwards. Fever is also improving. unfortunately, he has had several episodes of agitation, but due to lithium toxicity, bipolar disorder, mild dementia and acute illness. He periodically becomes very agitated. Ativan reportedly makes this worse. He does respond nicely to Haldol. He does not appear capable of taking care of himselftherefore social work has been consulted, as has his daughter, to consider placement options. -Head CT also showed a left mastoid process, which will need ENT follow-up. he did have a fairly restful night. This morning when I evaluated him,he was pleasant, calm and cooperative. He admits he has had some intermittent confusion for the last several months at home. He also reports several falls, and today complains of continued pain in his right elbow and shoulder areas. He did see his primary care physician for those, prior to admission. Later this morning, he has had increased agitation and confusion again. When this happens, he becomes somewhat aggressive. Winthrop was restarted at a lower dose, and so far levels have been okay. the patient reported he was feeling better this morning. He admits to feeling somewhat confused, but was able to state the date, including month, day, year. He could not recall the name of the president. He does not believe that he's been havingfever or chills, headaches or dizziness, chest pain or shortness of breath abdominal pain, nausea or vomiting, diarrhea or constipation, dysuria. - Constitutional Vitals: Vital Signs Temp Pulse Resp BP Pulse Ox 98.6 F 66 16 146/64 96 02/26/17 07:55 02/26/17 03:36 02/26/17 07:55 02/26/17 07:55 02/26/17 07:55 Period Temp Pulse Resp BP Sys/Ceron Pulse Ox Last 24 Hr 98.6 F-99.4 F 55-72 16-16 127-164/64-89 96-98 Intake and Output 02/25/17 02/26/17 02/26/17 21:59 05:59 13:59 Intake Total 700 / 700 460 / 460 240 / 240 Output Total 950 / 950 425 / 425 Balance 700 / 700 -490 / -490 -185 / -185 Weight 297 lb 12.8 oz Intake & Output: Intake & Output 02/25/17 02/26/17 02/26/17 21:59 05:59 13:59 Intake Total 700 / 700 460 / 460 240 / 240 Output Total 950 / 950 425 / 425 Balance 700 / 700 -490 / -490 -185 / -185 Weight 297 lb 12.8 oz Intake: IV 100 / 100 100 / 100 Oral 600 / 600 360 / 360 240 / 240 Output: Void Amount 950 / 950 425 / 425 Other: Meal Dinner Percent of Meal Consumed 100% Feeding Ability Independent # Voids 1 on exam, he is an overweight white male, in no acute distress. He is sitting up in a chair, and is pleasant and cooperative. Neck appears supple, without obvious JVD.Cardiac exam shows regular rate and rhythm. Lungs: Are clear to auscultation. Abdomen: Is quite obese and protuberant. There is no obvious tenderness, guarding, rebound. Bowel sounds are active. Extremities: Show mild edema of the distal legs and feet. he does have some pain in his right arm, and has difficulty straightening his arm, since a recent fall. Neurologic:The patient is alert and oriented, but rather forgetful He was calm this morning, but became more agitated this afternoon. Motor exam is grossly nonfocal. Medical - PN: Obj Da - Labs CBC & Chem 7: 02/26/17 04:14 02/26/17 04:14 Labs: Abnormal Lab Results 02/26/17 02/26/17 02/25/17 04:14 04:14 03:40 WBC 13.9 H RBC 3.65 L Hgb 12.2 L Hct 35.6 L Lymphocytes % 14 L WBC Morphology Vacuolated Monocytes Toxic Granulation Glucose 190 H 156 H Uric Acid Phosphorus 2.5 L 2.5 L Magnesium Triglycerides 159 H 212 H Urine Protein Urine Ketones Urine RBC 02/25/17 02/24/17 02/24/17 03:40 03:52 03:52 WBC 14.5 H 14.9 H RBC 3.92 L 4.22 L Hgb 12.9 L Hct 38.4 L Lymphocytes % WBC Morphology Abnorm A Abnorm A Vacuolated Monocytes 1+ A 1+ A Toxic Granulation 1+ A Glucose 161 H Uric Acid 8.1 H Phosphorus 2.6 L Magnesium 1.4 L Triglycerides 157 H Urine Protein Urine Ketones Urine RBC 06/23/17 03:31 WBC RBC Hgb Hct Lymphocytes % WBC Morphology Vacuolated Monocytes Toxic Granulation Glucose Uric Acid Phosphorus Magnesium Triglycerides Urine Protein 30 A Urine Ketones 20 A Urine RBC 4 H February 25: Winthrop level is normal at 0.6 February 24: Urinalysis showed 30 mg protein, 20 ketones 4 white blood cells, negative nitrites and leukocyte esterase. C. difficile screen is negative. CT of the chest: shows right paracolonic fluid and inflammatory changes, possibly consistent with colitis. Small ventral wall hernia. Mild cardiomegaly. February 23: chest x-ray:Mild CHF and minimal right basilar atelectasis.ild cardiomegaly. February 22: - EKG: Shows sinus bradycardia at a rate of 57, left atrial enlargement, old inferior MS. -melania CT: Shows moderate mucosal thickening of the maxillary sinus, and a 15 mm focal erosion of the maxillary sinus. Suggest ENT referral. Mild bilateral ethmoid and left maxillary sinusitis. February 21: -Urine culture: Strep agalactiae, group B, less than 10,000CFU Blood cultures are negative. MRSA screen is negative. February 20: Head CT: Mild atrophy and chronic ischemic changes, stable since 1 year ago. Moderate thickening of the right maxillary sinus with squamous cell carcinoma in the differential. Meds: Medications Acetaminophen (Tylenol) 650 mg PO Q4-6HP PRN PRN Reason: PAIN/FEVER > 101 Last Admin: 02/25/17 04:39 Dose: 650 mg Hydrocodone Bitart/Acetaminophen (Scuddy 10/325mg) 1 tab PO Q4-6HP PRN PRN Reason: Pain Last Admin: 02/26/17 03:18 Dose: 1 tab Amlodipine Besylate (Norvasc) 10 mg PO DAILY [facility] Last Admin: 02/26/17 10:08 Dose: 10 mg Carisoprodol (Soma) 350 mg PO BID [facility] Last Admin: 02/26/17 10:08 Dose: 350 mg Citalopram Hydrobromide (Celexa) 20 mg PO DAILY [facility] Last Admin: 02/26/17 10:08 Dose: 20 mg Dextrose (Dextrose 50%) 0 ml IV UD PRN PRN Reason: Hypoglycemia Diagnostic Test (Pha) (Accu-Chek) 1 each FS ACHS [facility] Last Admin: 02/26/17 08:04 Dose: 1 each Docusate Sodium (Colace) 100 mg PO BID [facility] Last Admin: 02/26/17 10:08 Dose: 100 mg Finasteride (Proscar) 5 mg PO DAILY [facility] Last Admin: 02/26/17 10:08 Dose: 5 mg Furosemide (Lasix) 20 mg PO DAILY [facility] Last Admin: 02/26/17 10:08 Dose: 20 mg Gabapentin (Neurontin) 600 mg PO TID [facility] Last Admin: 02/26/17 10:08 Dose: 600 mg Haloperidol Lactate (Haldol) 5 mg IV Q4HP PRN PRN Reason: ANXIETY/SEDATION Heparin Sodium (Porcine) (Heparin) 5,000 unit SQ Q12 [facility] Last Admin: 02/26/17 10:09 Dose: 5,000 unit Ceftriaxone Sodium 2 gm/ (Dextrose) 50 mls @ 100 mls/hr IV Q24H [facility] Last Admin: 02/26/17 10:09 Dose: 100 mls/hr Magnesium Sulfate (Magnesium Sulfate) 2 gm in 50 mls @ 50 mls/hr IV UD PRN PRN Reason: MG = or < 1.7 Last Infusion: 02/24/17 19:32 Dose: Infused Sodium Chloride (Sodium Chloride 0.9%) 1,000 mls @ 20 mls/hr IV .Q24H [facility] Last Admin: 02/25/17 13:16 Dose: 20 mls/hr Metronidazole (Flagyl) 500 mg in 100 mls @ 100 mls/hr IV Q8H [facility] Last Admin: 02/26/17 05:44 Dose: 100 mls/hr Insulin Human Lispro (Humalog) 0 unit SQ ACHS [facility] PRN Reason: Protocol Last Admin: 02/26/17 08:04 Dose: 2 unit Iron Carb/Multivit/[place]/Folic Acid (Multivitamin W/Minerals) 1 tab PO DAILY [facility] Last Admin: 02/26/17 10:08 Dose: 1 tab Lamotrigine (Lamictal) 200 mg PO HS [facility] Last Admin: 02/25/17 21:39 Dose: 200 mg Lisinopril (Zestril) 20 mg PO DAILY [facility] Last Admin: 02/26/17 10:08 Dose: 20 mg Winthrop Carbonate (Winthrop Carbonate) 300 mg PO BID [facility] Last Admin: 02/26/17 10:07 Dose: 300 mg Metformin HCl (Glucophage) 500 mg PO BIDCC [facility] Last Admin: 02/26/17 08:04 Dose: 500 mg Ondansetron HCl (Zofran) 4 mg IV Q4-6HP PRN PRN Reason: Nausea And Vomiting Pantoprazole Sodium (Protonix) 40 mg PO QAMAC [facility] Last Admin: 02/26/17 08:04 Dose: 40 mg Senna/Docusate Sodium (Senna Plus Tablet) 1 tab PO [facility] Last Admin: 02/25/17 21:39 Dose: Not Given Simvastatin (Zocor) 20 mg PO [facility] Last Admin: 02/25/17 21:39 Dose: 20 mg Sitagliptin Phosphate (Januvia) 50 mg PO DAILY [facility] Last Admin: 02/26/17 10:08 Dose: 50 mg Sodium Chloride (Saline Flush) 10 ml IV Q8 [facility] Last Admin: 02/26/17 05:44 Dose: Not Given Tamsulosin HCl (Flomax) 0.4 mg PO [facility] Last Admin: 02/25/17 21:38 Dose: 0.4 mg - ABG Interpretation ABG results: 02/21/17 18:57 ABG Methemoglobin 0.1 L VBG pH 7.38 VBG pCO2 36.0 L VBG pO2 124 H VBG HCO3 20.8 L VBG Total CO2 21.9 L VBG O2 Saturation 95.8 H VBG Base Excess -3.8 L Medical - PN: A/P - Time Spent With Patient Total time spent is greater than 50% in coordination of care (as documented) at patient's floor/unit and/or counseling patient: 25 - 35 minutes - Narrative A/P Narrative: #1. Infectious disease. -This patient presents with leukocytosis and probable right colon colitis. urinalysis was also mildly positive. Continue vancomycin, Rocephin, Flagyl. -patient will need GI follow-up after discharge. Maxillary sinusitis/ possible ca: CT face done, no e/o cancer. Pt may need outpatient ENT eval. #2.Winthrop Overdose, unintentional: Winthrop levels back down again, 0.6 this AM, resumed lithium at 300mg bid (was 300mg tid) #3.renal. LEATHA on CKD: resolved , appreciate nephrology input, renal function back to baseline. #4.psychiatric. Bipolar disorder: resumed lithium now at lower dose, he will need close follow up to monitor lithium levels. although the patient continues to have episodes ofhallucinations and agitation, [facility] did not feel that he was suicidal and said they could not detain him. -Continue lithium, and when necessary Haldol. continue Celexa and gabapentin and Lamictal. He will require follow-up with psych as an outpatient. #5. Neurologic. AMS: Mental status much improved, combination of infection, lithium overdose and bipolar disorder. #6.Chr pain: on gabapentin, hydrocodone, soma . #7.DM: On sliding scale, and glucose has reasonable control. continue sitagliptin and metformin. #8.Morbid obesity. #9.DVT hep sq #10.Full code #11.Dispo: waiting further social work investigation. The patient's daughter is also interested in long-term placement #12. Cardiac. Hypertension Blood pressures are somewhat labile Continue to monitor. Continue Lasix lisinopril, simvastatin,Norvasc,this a prolonged. #13. . -BPH. Continue Flomax and Proscar. this visit is taken approximately 35 minutes so far today, to interview and examine the patient, review test results,review plan of care with nursing staff several times, and write orders. Medical - PN: Qual - Stroke Symptom Onset Unknown: No - VTE Deep Vein Thrombosis/Pulmonary Embolism Present on Admission: No
[2017-02-26] MEDS: 0.9 % SODIUM CHLORIDE 1,000 ML IV SCH (11:09)
[2017-02-26] MEDS: SENNOSIDES/DOCUSATE SODIUM 1 TAB TABLET PO SCH (20:06)
[2017-02-26] MEDS: lamoTRIgine 100 MG TABLET PO SCH (20:06)
[2017-02-26] MEDS: TAMSULOSIN 0.4 MG CAPSULE PO SCH (20:06)
[2017-02-26] MEDS: SIMVASTATIN 20 MG TABLET PO SCH (20:06)
[2017-02-27] MEDS: metroNIDAZOLE 500 MG/100 ML BAG IV SCH ×3 (05:20→22:15)
[2017-02-27] MEDS: 0.9 % SODIUM CHLORIDE 10 ML SYRINGE IV SCH ×3 (05:39→20:20)
[2017-02-27] MEDS: HYDROcodone/APAP 10/325MG TABLET PO PRN ×3 (07:06→20:10)
[2017-02-27] MEDS: metFORMIN 500 MG TABLET PO SCH ×2 (07:06→17:14)
[2017-02-27] MEDS: PANTOPRAZOLE 40 MG TABLET PO SCH (07:06)
[2017-02-27] MEDS: INSULIN LISPRO 1 UNIT/0.01 ML UNIT SQ SCH ×4 (07:43→20:10)
[2017-02-27] MEDS: cefTRIAXone 2 GM in DEXTROSE 5% IN WATER 50 ML IV SCH (09:20)
[2017-02-27] MEDS: LITHIUM CARBONATE 150 MG CAPSULE PO SCH ×2 (09:20→20:08)
[2017-02-27] MEDS: HEPARIN 5,000 UNIT/ML VIAL SQ SCH ×2 (09:21→20:09)
[2017-02-27] MEDS: FINASTERIDE 5 MG TABLET PO SCH (09:21)
[2017-02-27] MEDS: LISINOPRIL 20 MG TABLET PO SCH (09:21)
[2017-02-27] MEDS: amLODIPine 10 MG TABLET PO SCH (09:21)
[2017-02-27] MEDS: GABAPENTIN 300 MG CAPSULE PO SCH ×3 (09:21→20:09)
[2017-02-27] MEDS: CITALOPRAM 20 MG TABLET PO SCH (09:21)
[2017-02-27] MEDS: BISOPROLOL 5 MG TABLET PO SCH (09:21)
[2017-02-27] MEDS: sitaGLIPtin 100 MG TABLET PO SCH (09:21)
[2017-02-27] MEDS: CARISOPRODOL 350 MG TABLET PO SCH ×2 (09:21→20:09)
[2017-02-27] MEDS: MULTIVIT,THER IRON,CA,FA & MIN 1 TABLET PO SCH (09:22)
[2017-02-27] MEDS: DOCUSATE SODIUM 100 MG CAPSULE PO SCH ×2 (09:22→20:08)
[2017-02-27] MEDS: FUROSEMIDE 20 MG TABLET PO SCH (09:22)
[2017-02-27] MEDS: 0.9 % SODIUM CHLORIDE 1,000 ML IV SCH (12:02)
--- NOTE | 2017-02-27 12:15 | Internal Med Progress Note ---
Medical - PN: Subj Patient information: Note initiated : 02/27/17 at 12:14 pm Service Date, if different from initiated Date: [] Patient: Paco Ramos 72 y/o M admitted on 02/21/17 for fall. Chief Complaint: [] Interval history: march 01, 2017: History of present illness: This is a 72 yr male admitted to the hospital with AMS, on eval not ed that patient had tremors, and depressed mentation, altered mentation, elevated lithium levels and renal failure. Patient was seen by nephrology, and IV fluids given, pt lithium levels improved. 02/22: patient seen examined, no acute overnight events, patient much more cooperative today, he was sitting comfortably eating breakfast. Labs reviewed with him. He is ok to get CT sinuses for eval for possible malignancy in the sinuses. 02/23: Pt seen examined, was sedated this AM, was very aggressive yesterday afternoon and overnight, needing 4 point restrains to maintain stability of lines and safety of nursing staff. Patient needed haldol and ativan to keep him calm. His wbc count is uptrending despite being on vanco and rocephin, his esr, crp is normal, prolactin is neg, ua neg and cxr clear. cultures have been neg so far he did manage to get CT sinus which is neg, he will need outpatient ENT referral 02/24: Pt seen examined, mental status much better today, out of restrains. AOOx1 only, WBC uptrending, on abx vanco and rocephin, procalcitonin is 0.11, CT chest abdo and pelvis without con ordered (pt allergic to contrast). 02/25: Patient seen examined, had some issues with aggressive behavior last night , but no issues today, he admits that he was paranoid last night, his wbc count is trending down, his CT shows some colitis, but no other issues, IV flagyl started. Pt is able to tolerate po meds well. Given that his labs are stable, he can tolerate po and improvement in mental status, the patient seems to be back at baseline. He needs to follow up with ENT for evaluation of mucosal thickening in the maxillay sinus. He needs to follow up with GI as outpatient for colonoscopy. Otherwise he can be evaluated by [facility] for placement. Will d/c once place found February 26: as noted above, this patient was admitted with frequent falls and confusion. He was also diagnosed with possible UTI, as well as a mild right- sided colitis. He was treated with IV fluids and IV antibiotics. White blood cell count is slowly trending downwards. Fever is also improving. unfortunately, he has had several episodes of agitation, but due to lithium toxicity, bipolar disorder, mild dementia and acute illness. He periodically becomes very agitated. Ativan reportedly makes this worse. He does respond nicely to Haldol. He does not appear capable of taking care of himselftherefore social work has been consulted, as has his daughter, to consider placement options. -Head CT also showed a left mastoid process, which will need ENT follow-up. he did have a fairly restful night. This morning when I evaluated him,he was pleasant, calm and cooperative. He admits he has had some intermittent confusion for the last several months at home. He also reports several falls, and today complains of continued pain in his right elbow and shoulder areas. He did see his primary care physician for those, prior to admission. Later this morning, he has had increased agitation and confusion again. When this happens, he becomes somewhat aggressive. [place] was restarted at a lower dose, and so far levels have been okay. the patient reported he was feeling better this morning. He admits to feeling somewhat confused, but was able to state the date, including month, day, year. He could not recall the name of the president. He does not believe that he's been havingfever or chills, headaches or dizziness, chest pain or shortness of breath abdominal pain, nausea or vomiting, diarrhea or constipation, dysuria. February 27: today, the patient says he is feeling better and feels like he has turned a corner, while up with physical therapy, he said he has much less pain in his right arm and shoulder than before. however, he remains quite forgetful. nurses report that he was a little paranoid last night, accusing them of keeping him here against his will. However he was easily redirected, and was calm the rest of the night. today he denies fever or chills headaches or dizziness, sore throat or cough, chest pain or palpitations, shortness of breath, abdominal pain, nausea or vomiting, diarrhea or constipation, dysuria. - Constitutional Vitals: Vital Signs Temp Pulse Resp BP Pulse Ox 98.1 F 66 16 131/76 99 02/27/17 08:00 02/26/17 03:36 02/27/17 08:00 02/27/17 08:00 02/27/17 08:00 Period Temp Pulse Resp BP Sys/Ceron Pulse Ox Last 24 Hr 97.2 F-99.0 F 16-20 131-165/60-76 95-99 Intake and Output 02/26/17 02/27/17 02/27/17 21:59 05:59 13:59 Intake Total 1510 / 1510 300 / 300 1035 / 1035 Output Total 575 / 575 300 / 300 1275 / 1275 Balance 935 / 935 0 / 0 -240 / -240 Weight 301 lb 2.423 oz Intake & Output: Intake & Output 02/26/17 02/27/17 02/27/17 21:59 05:59 13:59 Intake Total 1510 / 1510 300 / 300 1035 / 1035 Output Total 575 / 575 300 / 300 1275 / 1275 Balance 935 / 935 0 / 0 -240 / -240 Weight 301 lb 2.423 oz Intake: IV 100 / 100 100 / 100 1035 / 1035 Sodium Chloride 0.9% 1, 935 / 935 000 ml @ 20 mls/hr IV . Q24H [facility] Rx#:[id number] Oral 1410 / 1410 200 / 200 Output: Void Amount 575 / 575 300 / 300 1275 / 1275 Other: Meal Dinner Percent of Meal Consumed 100% Feeding Ability Independent # Voids 1 # Bowel Movements 1 on exam, he is an overweight white male, in no acute distress. He is sitting up in a chair, and is pleasant and cooperative. Neck appears supple, without obvious JVD. Cardiac exam shows regular rate and rhythm. Lungs: Are clear to auscultation. Abdomen: Is quite obese and protuberant. There is no obvious tenderness, guarding, rebound. Bowel sounds are active. Extremities: Show mild edema of the distal legs and feet. Neurologic:The patient is alert and oriented, but rather forgetful. He was calm this morning, and quite cooperative. He has not required Haldol for about 3 days now. Medical - PN: Obj Da - Labs CBC & Chem 7: 02/26/17 04:14 02/26/17 04:14 Labs: Abnormal Lab Results 02/26/17 02/26/17 02/25/17 04:14 04:14 03:40 WBC 13.9 H RBC 3.65 L Hgb 12.2 L Hct 35.6 L Lymphocytes % 14 L WBC Morphology Vacuolated Monocytes Glucose 190 H 156 H Phosphorus 2.5 L 2.5 L Triglycerides 159 H 212 H 02/25/17 03:40 WBC 14.5 H RBC 3.92 L Hgb 12.9 L Hct 38.4 L Lymphocytes % WBC Morphology Abnorm A Vacuolated Monocytes 1+ A Glucose Phosphorus Triglycerides february 27: [place] level is normal at 0.6 February 25: [place] level is normal at 0.6 February 24: Urinalysis showed 30 mg protein, 20 ketones 4 white blood cells, negative nitrites and leukocyte esterase. C. difficile screen is negative. CT of the chest: shows right paracolonic fluid and inflammatory changes, possibly consistent with colitis. Small ventral wall hernia. Mild cardiomegaly. February 23: chest x-ray:Mild CHF and minimal right basilar atelectasis.ild cardiomegaly. February 22: - EKG: Shows sinus bradycardia at a rate of 57, left atrial enlargement, old inferior KS. -melania CT: Shows moderate mucosal thickening of the maxillary sinus, and a 15 mm focal erosion of the maxillary sinus. Suggest ENT referral. Mild bilateral ethmoid and left maxillary sinusitis. February 21: -Urine culture: Strep agalactiae, group B, less than 10,000CFU Blood cultures are negative. MRSA screen is negative. February 20: Head CT: Mild atrophy and chronic ischemic changes, stable since 1 year ago. Moderate thickening of the right maxillary sinus with squamous cell carcinoma in the differential. Meds: Medications Acetaminophen (Tylenol) 650 mg PO Q4-6HP PRN PRN Reason: PAIN/FEVER > 101 Last Admin: 02/25/17 04:39 Dose: 650 mg Hydrocodone Bitart/Acetaminophen ([place] 10/325mg) 1 tab PO Q4-6HP PRN PRN Reason: Pain Last Admin: 02/27/17 07:06 Dose: 1 tab Amlodipine Besylate (Norvasc) 10 mg PO DAILY [facility] Last Admin: 02/27/17 09:21 Dose: 10 mg Bisoprolol Fumarate (Zebeta) 5 mg PO DAILY [facility] Last Admin: 02/27/17 09:21 Dose: 5 mg Carisoprodol (Soma) 350 mg PO BID [facility] Last Admin: 02/27/17 09:21 Dose: 350 mg Citalopram Hydrobromide (Celexa) 20 mg PO DAILY [facility] Last Admin: 02/27/17 09:21 Dose: 20 mg Dextrose (Dextrose 50%) 0 ml IV UD PRN PRN Reason: Hypoglycemia Diagnostic Test (Pha) (Accu-Chek) 1 each FS ACHS [facility] Last Admin: 02/27/17 12:00 Dose: 1 each Docusate Sodium (Colace) 100 mg PO BID [facility] Last Admin: 02/27/17 09:22 Dose: Not Given Finasteride (Proscar) 5 mg PO DAILY [facility] Last Admin: 02/27/17 09:21 Dose: 5 mg Furosemide (Lasix) 20 mg PO DAILY [facility] Last Admin: 02/27/17 09:22 Dose: 20 mg Gabapentin (Neurontin) 600 mg PO TID [facility] Last Admin: 02/27/17 09:21 Dose: 600 mg Haloperidol Lactate (Haldol) 5 mg IV Q4HP PRN PRN Reason: ANXIETY/SEDATION Heparin Sodium (Porcine) (Heparin) 5,000 unit SQ Q12 [facility] Last Admin: 02/27/17 09:21 Dose: 5,000 unit Ceftriaxone Sodium 2 gm/ (Dextrose) 50 mls @ 100 mls/hr IV Q24H [facility] Last Admin: 02/27/17 09:20 Dose: 100 mls/hr Magnesium Sulfate (Magnesium Sulfate) 2 gm in 50 mls @ 50 mls/hr IV UD PRN PRN Reason: MG = or < 1.7 Last Infusion: 02/24/17 19:32 Dose: Infused Sodium Chloride (Sodium Chloride 0.9%) 1,000 mls @ 20 mls/hr IV .Q24H [facility] Last Admin: 02/27/17 12:02 Dose: 20 mls/hr Metronidazole (Flagyl) 500 mg in 100 mls @ 100 mls/hr IV Q8H [facility] Last Infusion: 02/27/17 08:03 Dose: Infused Insulin Human Lispro (Humalog) 0 unit SQ ACHS [facility] PRN Reason: Protocol Last Admin: 02/27/17 12:00 Dose: 2 unit Iron Carb/Multivit/[place]/Folic Acid (Multivitamin W/Minerals) 1 tab PO DAILY [facility] Last Admin: 02/27/17 09:22 Dose: 1 tab Lamotrigine (Lamictal) 200 mg PO [facility] Last Admin: 02/26/17 20:06 Dose: 200 mg Lisinopril (Zestril) 20 mg PO DAILY [facility] Last Admin: 02/27/17 09:21 Dose: 20 mg [place] Carbonate ([place] Carbonate) 300 mg PO BID [facility] Last Admin: 02/27/17 09:20 Dose: 300 mg Metformin HCl (Glucophage) 500 mg PO BIDCC [facility] Last Admin: 02/27/17 07:06 Dose: 500 mg Ondansetron HCl (Zofran) 4 mg IV Q4-6HP PRN PRN Reason: Nausea And Vomiting Pantoprazole Sodium (Protonix) 40 mg PO QAMAC [facility] Last Admin: 02/27/17 07:06 Dose: 40 mg Senna/Docusate Sodium (Senna Plus Tablet) 1 tab PO HS [facility] Last Admin: 02/26/17 20:06 Dose: 1 tab Simvastatin (Zocor) 20 mg PO [facility] Last Admin: 02/26/17 20:06 Dose: 20 mg Sitagliptin Phosphate (Januvia) 50 mg PO DAILY [facility] Last Admin: 02/27/17 09:21 Dose: 50 mg Sodium Chloride (Saline Flush) 10 ml IV Q8 [facility] Last Admin: 02/27/17 05:39 Dose: Not Given Tamsulosin HCl (Flomax) 0.4 mg PO [facility] Last Admin: 02/26/17 20:06 Dose: 0.4 mg - ABG Interpretation ABG results: 02/21/17 18:57 ABG Methemoglobin 0.1 L VBG pH 7.38 VBG pCO2 36.0 L VBG pO2 124 H VBG HCO3 20.8 L VBG Total CO2 21.9 L VBG O2 Saturation 95.8 H VBG Base Excess -3.8 L Medical - PN: A/P - Time Spent With Patient Total time spent is greater than 50% in coordination of care (as documented) at patient's floor/unit and/or counseling patient: - Narrative A/P Narrative: #1. Infectious disease. -This patient presents with leukocytosis and probable right colon colitis. urinalysis was also mildly positive. Continue vancomycin, Rocephin, Flagyl. -he is much improved compared with admission. -patient will need GI follow-up after discharge. Maxillary sinusitis/ possible ca: CT face done, no e/o cancer. Pt may need outpatient ENT eval. #2.[place] Overdose, unintentional: [place] levels back down again, 0.6 this AM, resumed lithium at 300mg bid (was 300mg tid) . This is stable. #3.renal. LEATHA on CKD: resolved .. #4.psychiatric. Bipolar disorder: resumed lithium now at lower dose, he will need close follow up to monitor lithium levels. although the patient continues to have episodes of hallucinations and agitation, occasionally, he has been much calmer the last couple of days, and easily redirectable. - Q did not feel that he was suicidal and said they could not detain him. -Continue lithium, continue Celexa and gabapentin and Lamictal. He will require follow-up with psych as an outpatient. -consider adding a when necessary or scheduled antipsychotic if needed. e apparently cannot use Haldol at a rehabilitation center. Seroquel and Risperdal and Ambien have exacerbated his symptoms in the past. He also seemed to be worse here when given Ativan. - If he has recurrent sx's, would consider low dose, either scheduled or prn, Zyprexa. #5. Neurologic. AMS: Mental status much improved, combination of infection, lithium overdose and bipolar disorder. #6.Chr pain: on gabapentin, hydrocodone, soma . #7.DM: On sliding scale, and glucose has reasonable control. continue sitagliptin and metformin. #8.Morbid obesity. #9.DVT hep sq #10.Full code #11.Dispo: waiting further social work investigation. The patient's daughter is also interested in long-term placement #12. Cardiac. Hypertension Blood pressures were labile,but it went quite stable over the last 24 hours. Continue to monitor. Continue Lasix lisinopril, simvastatin,Norvasc, bisoprolol. #13. . -BPH. Continue Flomax and Proscar. #14 Disposition: the patient will likely need at least short-term rehabilitation for physical and occupational therapy, prior to even considering returning home. He is at risk for falls and his psychiatric issues complicate things. this visit is taken approximately 25 minutes so far today, to interview and examine the patient, review test results,review plan of care with nursing staff several times, and write orders. Medical - PN: Qual - Stroke Symptom Onset Unknown: No - VTE Deep Vein Thrombosis/Pulmonary Embolism Present on Admission: No
[2017-02-27] MEDS: SIMVASTATIN 20 MG TABLET PO SCH (20:09)
[2017-02-27] MEDS: TAMSULOSIN 0.4 MG CAPSULE PO SCH (20:09)
[2017-02-27] MEDS: lamoTRIgine 100 MG TABLET PO SCH (20:09)
[2017-02-27] MEDS: SENNOSIDES/DOCUSATE SODIUM 1 TAB TABLET PO SCH (20:20)
[2017-02-28] MEDS: 0.9 % SODIUM CHLORIDE 10 ML SYRINGE IV SCH (05:27)
[2017-02-28] MEDS: metroNIDAZOLE 500 MG/100 ML BAG IV SCH (05:27)
[2017-02-28] MEDS ORDERED: FLUTICASONE PROPIONATE PRN (07:13)
[2017-02-28] MEDS ORDERED: FLUTICASONE PROPIONATE SPRAY.NAS NS PRN (07:15)
[2017-02-28] MEDS: metFORMIN 500 MG TABLET PO SCH (07:59)
[2017-02-28] MEDS: PANTOPRAZOLE 40 MG TABLET PO SCH (07:59)
[2017-02-28] MEDS: INSULIN LISPRO 1 UNIT/0.01 ML UNIT SQ SCH ×2 (08:00→12:38)
[2017-02-28] MEDS: sitaGLIPtin 100 MG TABLET PO SCH (09:12)
[2017-02-28] MEDS: cefTRIAXone 2 GM in DEXTROSE 5% IN WATER 50 ML IV SCH (09:12)
[2017-02-28] MEDS: FINASTERIDE 5 MG TABLET PO SCH (09:13)
[2017-02-28] MEDS: LITHIUM CARBONATE 150 MG CAPSULE PO SCH (09:13)
[2017-02-28] MEDS: MULTIVIT,THER IRON,CA,FA & MIN 1 TABLET PO SCH (09:13)
[2017-02-28] MEDS: CITALOPRAM 20 MG TABLET PO SCH (09:13)
[2017-02-28] MEDS: HEPARIN 5,000 UNIT/ML VIAL SQ SCH (09:13)
[2017-02-28] MEDS: BISOPROLOL 5 MG TABLET PO SCH (09:13)
[2017-02-28] MEDS: GABAPENTIN 300 MG CAPSULE PO SCH (09:13)
[2017-02-28] MEDS: LISINOPRIL 20 MG TABLET PO SCH (09:13)
[2017-02-28] MEDS: CARISOPRODOL 350 MG TABLET PO SCH (09:13)
[2017-02-28] MEDS: FUROSEMIDE 20 MG TABLET PO SCH (09:13)
[2017-02-28] MEDS: DOCUSATE SODIUM 100 MG CAPSULE PO SCH (09:14)
[2017-02-28] MEDS: amLODIPine 10 MG TABLET PO SCH (09:18)
[2017-02-28 10:02] LABS: Basophils # (Auto) 0 K/mcL (0.0-0.3); Basophils % (Auto) 0.2 % (0.0-2.0); Eosinophils # (Auto) 0.4 K/mcL (0.0-0.7); Eosinophils % (Auto) 3.2 % (0.0-7.0); Granulocytes % (Auto) 80.6 % (38.0-78.0); Lymphocytes # (Auto) 1.3 K/mcL (1.5-4.8); Lymphocytes % (Auto) 9.8 % (15.5-49.0); Mean Corpuscular HGB Conc 33.2 g/dL (31.0-36.0); Mean Corpuscular Hemoglobin 32.5 pg (26.0-34.0); Monocytes # (Auto) 0.8 K/mcL (0.1-0.9); Monocytes % (Auto) 6.2 % (1.0-12.0); Platelet Count 278 K/mcL (140-440); RBC 3.82 M/mcL (4.50-5.90); Red Cell Distribution Width 13.6 % (11.5-14.5)
[2017-02-28 10:20] LABS: ALT/SGPT 28 U/l (0-40); Albumin 3.6 gm/dL (3.2-5.2); Albumin/Globulin Ratio 1.4 (1.0-2.3); Alkaline Phosphatase 55 U/L (39-117); Blood Urea Nitrogen 11 mg/dl (8-23)
[2017-02-28] MEDS: 0.9 % SODIUM CHLORIDE 1,000 ML IV SCH (11:10)
--- NOTE | 2017-02-28 11:41 | Discharge Summary ---
Medical - DS: Prov Patient information: Note initiated : 02/28/17 at 11:31 am Patient: Paco Ramos 72 y/o M admitted on 02/21/17 for fall. Date of admission: 02/21/17 10:40 Discharge date: 02/28/17 Primary care physician: Juliet Cortés Admitting clinician: Abdi Olivares Consults: 02/27/17 10:05 Consult to Physician [CONS] Routine Comment: Consulting Provider: [facility] Reason For Exam: Physician to Consult [facility] Attending physician on discharge: Lory Bernstein Medical - DS: Meds - Discharge Medications Prescriptions: HYDROcodone/APAP 10/325MG [Ryan 10/325Mg] 1 - 2 tab PO Q4-6HP PRN #60 tablet PRN Reason: Pain Active and Home Medications: Discharge medications: Tylenol 650 mg every 4-6 hours as needed, maximum dose 3000 mg per day Ryan 10/325 1-2 tabs p.o. every 4-6 hours as needed Norvasc 10 mg daily Bisoprolol 5 mg daily Soma 350 mg p.o. twice daily scheduled, or change to as needed Celexa 20 mg p.o. daily Colace 100 mg p.o. twice daily Finasteride 5 mg p.o. daily Flonase 1 spray each nostril daily as needed Lasix 20 mg daily Gabapentin 600 mg p.o. 3 times daily Heparin 5000 units subcu every 12 hours Humalog sliding scale, 4 times daily. This could perhaps be discontinued once glucoses are stable. Multivitamin with iron and other minerals 1 daily Lamictal 200 mg p.o. nightly Lisinopril 20 mg daily [place] 300 mg p.o. twice daily (this dose was lowered) Metformin 500 mg p.o. twice daily Zofran 4 mg p.o. every 4-6 hours as needed nausea Zocor 20 mg p.o. nightly Januvia 50 mg daily next line Flomax 0.4 mg p.o. nightly Prior home Medications ALPRAZolam [Xanax] 0.25 mg PO BIDP PRN 04/04/16 [History Confirmed 02/21/17 Last Taken Unknown] Bisoprolol [Zebeta] 5 mg PO DAILY 04/04/16 [History Confirmed 02/21/17 Last Taken Unknown] Carisoprodol [Soma] 350 mg PO BID 04/04/16 [History Confirmed 02/21/17 Last Taken Unknown] Citalopram Hydrobromide [Citalopram HBr] 20 mg PO DAILY 04/04/16 [History Confirmed 02/21/17 Last Taken Unknown] Furosemide [Lasix] 20 mg PO DAILY 04/04/16 [History Confirmed 02/21/17 Last Taken Unknown] Gabapentin [Neurontin] 600 mg PO TID 04/04/16 [History Confirmed 02/21/17 Last Taken Unknown] Lisinopril [Zestril] 20 mg PO DAILY 04/04/16 [History Confirmed 02/21/17 Last Taken Unknown] [place] Carbonate 300 mg PO TID 04/04/16 [History Confirmed 02/21/17 Last Taken Unknown] Simvastatin [Zocor] 20 mg PO HS 04/04/16 [History Confirmed 02/21/17 Last Taken Unknown] Tamsulosin [Flomax] 0.4 mg PO HS 04/04/16 [History Confirmed 02/21/17 Last Taken Unknown] metFORMIN HCL [Glucophage] 1,000 mg PO BID 04/04/16 [History Confirmed 02/21/17 Last Taken Unknown] lamoTRIgine [Lamotrigine] 200 mg PO HS 04/05/16 [History Confirmed 02/21/17 Last Taken Unknown] Finasteride [Proscar] 5 mg PO DAILY 02/21/17 [History Confirmed 02/21/17 Last Taken Unknown] HYDROcodone/ACETAMINOPHEN [Hydrocodon-Acetaminophn 10-325] 1 - 2 tab PO Q4HP PRN 02/21/17 [History Confirmed 02/21/17 Last Taken Unknown] Fluticasone Propionate 1 spr .ROUTE PRN PRN 02/24/17 [History Confirmed Last Taken Unknown] Medical - DS: Hosp Hospital course: Mr. Ramos is a 72 year old M march 01, 2017: History of present illness: This is a 72 yr male admitted to the hospital with AMS, on eval not ed that patient had tremors, and depressed mentation, altered mentation, elevated lithium levels and renal failure. Patient was seen by nephrology, and IV fluids given, pt lithium levels improved. 02/22: patient seen examined, no acute overnight events, patient much more cooperative today, he was sitting comfortably eating breakfast. Labs reviewed with him. He is ok to get CT sinuses for eval for possible malignancy in the sinuses. 02/23: Pt seen examined, was sedated this AM, was very aggressive yesterday afternoon and overnight, needing 4 point restrains to maintain stability of lines and safety of nursing staff. Patient needed haldol and ativan to keep him calm. His wbc count is uptrending despite being on vanco and rocephin, his esr, crp is normal, prolactin is neg, ua neg and cxr clear. cultures have been neg so far he did manage to get CT sinus which is neg, he will need outpatient ENT referral 02/24: Pt seen examined, mental status much better today, out of restrains. AOOx1 only, WBC uptrending, on abx vanco and rocephin, procalcitonin is 0.11, CT chest abdo and pelvis without con ordered (pt allergic to contrast). 02/25: Patient seen examined, had some issues with aggressive behavior last night , but no issues today, he admits that he was paranoid last night, his wbc count is trending down, his CT shows some colitis, but no other issues, IV flagyl started. Pt is able to tolerate po meds well. Given that his labs are stable, he can tolerate po and improvement in mental status, the patient seems to be back at baseline. He needs to follow up with ENT for evaluation of mucosal thickening in the maxillay sinus. He needs to follow up with GI as outpatient for colonoscopy. Otherwise he can be evaluated by [facility] for placement. Will d/c once place found February 26: as noted above, this patient was admitted with frequent falls and confusion. He was also diagnosed with possible UTI, as well as a mild right- sided colitis. He was treated with IV fluids and IV antibiotics. White blood cell count is slowly trending downwards. Fever is also improving. unfortunately, he has had several episodes of agitation, but due to lithium toxicity, bipolar disorder, mild dementia and acute illness. He periodically becomes very agitated. Ativan reportedly makes this worse. He does respond nicely to Haldol. He does not appear capable of taking care of himselftherefore social work has been consulted, as has his daughter, to consider placement options. -Head CT also showed a left mastoid process, which will need ENT follow-up. he did have a fairly restful night. This morning when I evaluated him,he was pleasant, calm and cooperative. He admits he has had some intermittent confusion for the last several months at home. He also reports several falls, and today complains of continued pain in his right elbow and shoulder areas. He did see his primary care physician for those, prior to admission. Later this morning, he has had increased agitation and confusion again. When this happens, he becomes somewhat aggressive. [place] was restarted at a lower dose, and so far levels have been okay. the patient reported he was feeling better this morning. He admits to feeling somewhat confused, but was able to state the date, including month, day, year. He could not recall the name of the president. He does not believe that he's been havingfever or chills, headaches or dizziness, chest pain or shortness of breath abdominal pain, nausea or vomiting, diarrhea or constipation, dysuria. February 27: today, the patient says he is feeling better and feels like he has turned a corner, while up with physical therapy, he said he has much less pain in his right arm and shoulder than before. however, he remains quite forgetful. nurses report that he was a little paranoid last night, accusing them of keeping him here against his will. However he was easily redirected, and was calm the rest of the night. today he denies fever or chills headaches or dizziness, sore throat or cough, chest pain or palpitations, shortness of breath, abdominal pain, nausea or vomiting, diarrhea or constipation, dysuria. February 28: Hospital course: - was presented with frequent falls and worsening confusion. He was initially diagnosed with a UTI, but then abdominal CT suggested right-sided colitis. He was treated with IV Flagyl, IV Rocephin, vancomycin. White blood cell count has gradually trended downward, although is not quite back to normal yet. He has been afebrile, and vital signs have been stable. He initially had some abdominal tenderness, and this has resolved. He is not reporting any diarrhea or constipation at this time. He should be referred for GI follow-up in about 4 weeks. -The patient also had psychiatric symptoms during his stay, and was occasionally agitated and occasionally hallucinating, and could be paranoid. He was originally given IV Ativan, which seemed to make things worse. He was then given Haldol, which did settle him down nicely. He has been gradually improving, and has been fairly calm and cooperative for the last few days, and has not needed any as needed medications for agitation. He knows that he gets confused at times, and is often apologetic afterwards. -The patient is at high risk for falls, due to unstable gait. He has been progressing with physical therapy, and should continue this. He is certainly not strong enough physically, and not stable enough from a psychiatric standpoint, to return home to live alone just yet. -Head CT did show an abnormal mastoid process, and he should have outpatient follow-up with ENT. -Metformin dose was decreased. Higher blood sugars have been covered with sliding scale insulin. Januvia was started. Diabetes is currently fairly well controlled. Today, he notes he is having quite a bit less right arm pain and stiffness, after working with physical and occupational therapies. He is very pleased that his progress with being able to walk and having less pain. He is agreeable to transfer to a rehab center. He otherwise denies fever chills, headaches or dizziness, chest pain or shortness of breath, abdominal pain, nausea or vomiting, diarrhea or constipation,, or dysuria. On exam, he is an overweight white male, in no acute distress. He is sitting up in a chair, and is pleasant and cooperative. Neck appears supple, without obvious JVD. Cardiac exam shows regular rate and rhythm. Lungs: Are clear to auscultation. Abdomen: Is quite obese and protuberant. There is no obvious tenderness, guarding, rebound. Bowel sounds are active. Extremities: Show mild edema of the distal legs and feet. Neurologic:The patient is alert and oriented, but rather forgetful. He was calm this morning, and quite cooperative. He still seems a bit confused about his work and where his family is. He tends to confabulate during speech. Assessment and plan: #1. Infectious disease. -This patient presents with leukocytosis and probable right colon colitis. urinalysis was also mildly positive. Clinically, symptoms are resolved. Discontinue antibiotics at this time, after 7 days. -patient will need GI follow-up after discharge. -Maxillary sinusitis/ possible ca: CT face done, no e/o cancer. Pt may need outpatient ENT eval. #2.[place] Overdose, unintentional: [place] levels back down again, 0.6 this AM, resumed lithium at 300mg bid (was 300mg tid) . This is stable. #3.renal. LEATHA on CKD: resolved .. #4.psychiatric. Bipolar disorder: resumed lithium now at lower dose, he will need close follow up to monitor lithium levels. although the patient continues to have episodes of hallucinations and agitation, occasionally, he has been much calmer the last couple of days, and easily redirectable. - [facility] did not feel that he was suicidal and said they could not detain him. -Continue lithium, continue Celexa and gabapentin and Lamictal. He will require follow-up with psych as an outpatient. -consider adding a when necessary or scheduled antipsychotic if needed. he apparently cannot use Haldol at a rehabilitation center. Seroquel and Risperdal and Ambien have exacerbated his symptoms in the past. He also seemed to be worse here when given Ativan. - If he has recurrent sx's, would consider low dose, either scheduled or prn, Zyprexa. #5. Neurologic. - Mental status much improved, combination of infection, lithium overdose and bipolar disorder. -He is quite forgetful, and likely has an underlying dementia. #6.Chr pain: on gabapentin, hydrocodone, soma . #7.DM: On sliding scale, and glucose has reasonable control. continue sitagliptin and metformin. #8.Morbid obesity. #9.DVT hep sq--this can be discontinued when he is regularly mobile. #10.Full code #11.Dispo: Discharge for rehab today. The patient's daughter is also interested in long-term placement #12. Cardiac. Hypertension Blood pressures were labile,but it went quite stable over the last 24 hours. Continue to monitor. Continue Lasix lisinopril, simvastatin,Norvasc, bisoprolol. #13. . -BPH. Continue Flomax and Proscar. #14 Disposition: the patient will likely need at least short-term rehabilitation for physical and occupational therapy, prior to even considering returning home. He is at risk for falls and his psychiatric issues complicate things. Approximately 40 minutes was spent today, reviewing patient's test results, interviewing and examining him, reviewing plan of care with our team, and then writing orders. Discharge diagnosis: Right-sided colitis. Altered mental status. [place] toxicity. Secondary discharge diagnosis: Acute renal failure. Type 2 diabetes. Hypertension. Bipolar disorder and depression. - Time Spent with Patient Total time spent providing and/or coordinating discharge services: Greater than 30 minutes Medical - DS: Exam - Constitutional Vitals: Vital Signs Temp Resp BP BP Pulse Ox 02/28/17 08:00 97.7 F 16 146/69 99 02/28/17 04:00 97.7 F 16 134/68 98 02/27/17 20:00 97.7 F 18 152/71 99 02/27/17 16:00 98.0 F 18 118/73 99 02/27/17 12:00 97.9 F 16 115/92 96 Intake and Output 02/27/17 02/28/17 02/28/17 21:59 05:59 13:59 Intake Total 780 / 780 100 / 100 50 / 50 Balance 780 / 780 100 / 100 50 / 50 Intake: IV 100 / 100 100 / 100 50 / 50 Rocephin 2 gm In Dextrose 50 / 50 5% in Water 50 ml @ 100 mls/hr IV Q24H [facility] Rx#: [id number] Oral 680 / 680 Other: Meal Dinner Percent of Meal Consumed 100% # Voids 1 1 # Bowel Movements 1 1 Weight 301 lb 2.423 oz Medical - DS: Data Labs on day of discharge: Labs from last 24 hours 02/28/17 02/28/17 02/28/17 07:25 07:25 03:49 WBC 13.5 H RBC 3.82 L Hgb 12.4 L Hct 37.4 L MCV 98.0 MCH 32.5 MCHC 33.2 RDW 13.6 Plt Count 278 MPV 9.2 Gran % 80.6 H Lymph % (Auto) 9.8 L Mcnairy % (Auto) 6.2 Eos % (Auto) 3.2 Baso % (Auto) 0.2 Gran # 10.9 H Lymph # (Auto) 1.3 L Mcnairy # (Auto) 0.8 Eos # (Auto) 0.4 Baso # (Auto) 0 Sodium 138 Potassium 4.6 Chloride 101 Carbon Dioxide 23 Anion Gap 14.0 BUN 11 Creatinine 0.7 GFR Calculation 93 Glucose 197 H Calcium 9.4 Total Bilirubin 0.2 AST 35 ALT 28 Alkaline Phosphatase 55 Total Protein 6.1 Albumin 3.6 Globulin 2.5 Albumin/Globulin Ratio 1.4 [place] 0.6 02/26/17 04:00 WBC RBC Hgb Hct MCV MCH MCHC RDW Plt Count MPV Gran % Lymph % (Auto) Mcnairy % (Auto) Eos % (Auto) Baso % (Auto) Gran # Lymph # (Auto) Mcnairy # (Auto) Eos # (Auto) Baso # (Auto) Sodium Potassium Chloride Carbon Dioxide Anion Gap BUN Creatinine GFR Calculation Glucose Calcium Total Bilirubin AST ALT Alkaline Phosphatase Total Protein Albumin Globulin Albumin/Globulin Ratio [place] TNP Preliminary micro results at discharge 02/27/17 22:30 Stool Culture - Preliminary Stool february 27: [place] level is normal at 0.6 February 25: [place] level is normal at 0.6 February 24: Urinalysis showed 30 mg protein, 20 ketones 4 white blood cells, negative nitrites and leukocyte esterase. C. difficile screen is negative. CT of the chest and abdomen: shows right paracolonic fluid and inflammatory changes, possibly consistent with colitis. Small ventral wall hernia. Mild cardiomegaly. February 23: chest x-ray:Mild CHF and minimal right basilar atelectasis.ild cardiomegaly. February 22: - EKG: Shows sinus bradycardia at a rate of 57, left atrial enlargement, old inferior GA. -face CT: Shows moderate mucosal thickening of the maxillary sinus, and a 15 mm focal erosion of the maxillary sinus. Suggest ENT referral. Mild bilateral ethmoid and left maxillary sinusitis. February 21: -Urine culture: Strep agalactiae, group B, less than 10,000CFU Blood cultures are negative. MRSA screen is negative. February 20: Head CT: Mild atrophy and chronic ischemic changes, stable since 1 year ago. Moderate thickening of the right maxillary sinus with squamous cell carcinoma in the differential. Medical - DS: A/P - Patient/Caregiver Discharge Instructions Activity: as per physical therapy Diet: Low Sodium (2gm), Consistent Carbohydrate Prescriptions: HYDROcodone/APAP 10/325MG [Ryan 10/325Mg] 1 - 2 tab PO Q4-6HP PRN #60 tablet PRN Reason: Pain Other Amb Orders: OT Discharge Order Location: Determined By Patient Physical Therapy at Discharge - [facility] Location: Determined By Patient - Follow up Plan Follow up with: Juliet Cortés MD [Primary Care Provider] - Disposition: Xfer SNF Prognosis: Good Rehab Potential: Good I certify that the patient requires SNF services: Yes Overall status at discharge: patient is progressing back to baseline Medical - DS: Qual - VTE Deep Vein Thrombosis/Pulmonary Embolism Present on Admission: No
== END 2017-02-28 13:45 | DRG 386 ==
LOC: ED 19:46 → ICU 02-21 10:40 → SUATTDRO 02-21 10:40
PROVIDERS: ADMIT Internal Medicine; ATTEND Internal Medicine